=== PATIENT | male | born 1935 | race Caucasian/White ===

== ENCOUNTER → 2023-09-22 12:51 | Outpatient (REF) | payer OTHER, SELFPAY | LOC: RCS 12:51 | PROVIDERS: ATTENDING PHYSICIAN Internal Medicine Cardiovascular Disease; FAMILY PHYSICIAN Internal Medicine | DX: Z95.0 Presence of cardiac pacemaker (principal) | CPT/HCPCS: 93306 ==

== ENCOUNTER 2023-11-12 13:53 | Emergency (ER) | payer OTHER, SELFPAY ==
[2023-11-12 14:03] VITALS: BP 144/79
[2023-11-12 14:30] LABS: % Basophils 0.4 % (0-2); % Eosinophils 1.9 % (0-6); % Immature Granulocytes 0.2 % (0-0.5); % Lymphocytes 16.7 % (20.5-51.1); % Neutrophils 72.8 % (42.2-75.2); Absolute Eosinophils 0.2 10^3/uL (0-0.7); Absolute Lymphocytes 1.4 10^3/uL (1.2-3.4); Absolute Monocytes 0.7 10^3/uL (0.1-0.6); Absolute Neutrophils 6.2 10^3/uL (1.4-6.5); Hematocrit 35.1 % (39.0-52.0); Hemoglobin 11.2 g/dL (13.0-18.0); Mean Corp Hgb Conc. 31.9 g/dL (33.0-37.0); Mean Corpuscular Hgb 28.3 pg (27.0-31.0); Mean Corpuscular Volume 88.6 fL (80.0-94.0); Mean Platelet Volume 10.5 fL (7.4-10.4); Nucleated Red Blood Cells % 0 % (-); Platelet Count 248 10^3/uL (130-400); Red Blood Cell Count 3.96 10^6/uL (4.70-6.10); Red Cell Dist. Width 13.7 % (11.5-14.5); White Blood Cell Count 8.5 10^3/uL (4.8-10.8)
[2023-11-12 14:33] LABS: Urine Albumin 1+ (Neg - Trace); Urine Bilirubin Negative (Negative); Urine Glucose Negative (Negative); Urine Ketone Negative (Negative); Urine Leukocyte 2+ (Negative); Urine Nitrite Negative (Negative); Urine Occult Blood 4+ (Negative); Urine Urobilinogen Negative (Neg - 1+)
[2023-11-12 14:35] LABS: Urine Character Very Cloudy (Clear); Urine Color Pink
[2023-11-12 14:43] LABS: Urine Red Blood Cell >100 /HPF (0-2)
[2023-11-12 14:46] LABS: ALT (SGPT) 21 U/L (0-50); AST (SGOT) 26 U/L (17-59); Albumin 4.3 g/dl (3.5-5.0); Alkaline Phosphatase 74 U/L (38-126); Blood Urea Nitrogen 23 mg/dl (9-20); Calcium 11.4 mg/dl (8.4-10.2); Carbon Dioxide 28 mmol/L (22-30); Chloride 98 mmol/L (98-107); Glucose 103 mg/dl (70-99); Potassium 4.1 mmol/L (3.5-5.1); Sodium 138 mmol/L (135-145); Total Bilirubin 0.8 mg/dl (0.2-1.3); Total Protein 7.2 g/dl (6.3-8.2); eGFR 48.95
[2023-11-12 16:00] VITALS: BP 172/145
--- NOTE | 2023-11-12 16:07 | ED.GENMED ---
Addendum entered and electronically signed by Allie Shi PA-C 11/14/23 07:25:
prelim urine culture gram neg bacilli, only 25k colonoies
on augmentin
sensitivities pending
Original Note:
History of Present Illness
General
Chief Complaint: Urinary Symptoms
Source: patient and family
Time Seen by Provider: 11/12/23 15:53
History of Present Illness
History of Present Illness:
88yoM with a history of frequent UTIs, BPH, kidney stones, hypertension, hyperlipidemia, and type 2 diabetes presenting with his daughter for evaluation of hematuria. Patient reports urinary frequency and gross hematuria that began yesterday. He
reports noticing small clots in his urine stream. He denies any urinary retention, abdominal pain, flank pain, vomiting. No fevers or chills. Patient has a history of frequent UTIs and takes Macrobid and methenamine daily. He also takes Augmentin
PRN and he took a dose of this today.
Past History
Past History
ED Past Medical History: HTN, Hypercholesterolemia, NIDDM and Other (Kidney stones, UTI, Escherichia coli sepsis June 2018, BPH)
ED Past Surgical History: Urological (Cystoscopy with left ureteropelvic stone manipulation and double-J stent placement 07/17/2018)
Social History
Tobacco: Former smoker
Alcohol: None
Drug: None
Personal:
Living: with family
Employment: Retired
Family History
Family History: Other (Noncontributory)
Phy Exam
General Physical Exam
General Presentation: well appearing and no apparent distress
General age: appears stated age
General Skin: warm and dry
General Habitus: normal
General Mental: alert
ENT Exam
ENT Exam: normocephalic
Pulmonary Exam
Pulmonary Exam: no respiratory distress
Gastrointestinal Exam
Gastrointestinal Exam: non tender, soft, non distended and no cva tenderness
Genitourinary Exam Male
Exam Male: other (Urine is fruit punch colored with small clots)
Skin Exam
Skin Exam: normal color and warm/dry
Psychiatric Exam
Psychiatric Exam: normal mood/affect
Course
Orders/Labs/Results
Orders:
Orders
11/12/23 14:24
Complete Blood Count/With Diff Urgent
Comprehensive Metabolic Panel Urgent
Urinalysis Reflex To Culture Urgent
Date Specimen was Collected: 11/12/23
Time Specimen was Collected: 14:08
Urine Microscopic Reflex Cult Urgent
Urine Culture Urgent
MORALES Source: U
Specimen Description:
Date Specimen was Collected: 11/12/23
Time Specimen was Collected: 14:08
11/12/23 16:06
CT Abd/pel Without Iv Or Oral Urgent
Comment:
Reason For Exam: Hematuria
Bladder Scan- Treatment ONCE
11/12/23 18:16
Amoxicillin 875 mg/Clav 125 mg [Augmentin 875 mg/125 mg] 2 tablet PO NOW STA
Abnormal Lab Results
11/12/23
14:24
RBC 3.96 L 10^6/uL
(4.70-6.10)
Hgb 11.2 L g/dL
(13.0-18.0)
Hct 35.1 L %
(39.0-52.0)
MCHC 31.9 L g/dL
(33.0-37.0)
MPV 10.5 H fL
(7.4-10.4)
Absolute Monos (auto) 0.7 H 10^3/uL
(0.1-0.6)
Lymphocytes % 16.7 L %
(20.5-51.1)
BUN 23 H mg/dl
(9-20)
Creatinine 1.4 H mg/dL
(0.7-1.3)
Glucose 103 H mg/dl
(70-99)
Calcium 11.4 H mg/dl
(8.4-10.2)
Ur Occult Blood Reflex 4+ A
(Negative)
Leukocyte Esterase Rfl 2+ A
(Negative)
Urine RBC >100 A /HPF
(0-2)
Urine Albumin (Reflex) 1+ A
(Neg - Trace)
11/12/23 14:24
11/12/23 14:24
Vital Signs
Initial and Last Documented VS:
Initial Vital Signs
Temp Pulse Resp BP Pulse Ox
97.5 F 68 18 144/79 98
11/12/23 14:03 11/12/23 14:03 11/12/23 14:03 11/12/23 14:03 11/12/23 14:03
Last Documented Vital Signs
Temp Pulse Resp BP Pulse Ox
97.5 F 68 18 150/102 97
11/12/23 14:03 11/12/23 14:03 11/12/23 14:03 11/12/23 18:00 11/12/23 18:15
MDM/Problems Addressed
Differential Diagnosis Includes:
88yoM here with urinary frequency and gross hematuria x 1 day. No fevers, vomiting, flank pain. Take a baby aspirin daily. Hx of frequent UTIs and BPH. He is hypertensive with otherwise normal vitals. He is well appearing in no distress. No
abdominal or CVA tenderness on exam. Differential diagnosis includes but is not limited to: UTI, kidney stone, malignancy
Initial ED plan: Labs obtained in triage. Creatinine 1.4 which is near baseline. Hemoglobin is stable. UA with 2+ leukocytes and 4+ blood. Will check bladder scan and CT abdomen.
*Critical Care Note
Total Time (30-74mins, 75-104mins- exclusive of procedures): Not Applicable
Update Note
Update Note:
Bladder scan normal. CT shows 6.8mm stone in the L UPJ with mild hydronephrosis. There is also bladder wall thickening suggestive of cystitis and a severely enlarged prostate. Case was discussed with patient's urologist, Dr. Cristina. Urology
recommending discharge with PO abx with plan for close outpatient f/u this week. No indication for hospitalization as patient is afebrile with a normal white count but may admit if patient does not feel comfortable with discharge. Discussed
recommendations with patient and daughter. Both feel comfortable with discharge. Prescription provided for Augmentin based on prior urine culture susceptibilities. Advised close outpatient f/u with urology. Strict ED return precautions discussed
including severe pain, fevers, urinary retention. He was discharged in stable condition.
ED Attending Note
-
Portions of this chart may have been created with voice recognition software.� Occasional wrong word or��sound alike� substitutions may have occurred due to the inherent limitations of voice recognition software.
Discharge Plan
Departure
Patient Disposition: Home (Routine Discharge)
Date of Disposition: 11/12/23
Time of Disposition: 18:12
Patient with high blood pressure during this ER visit?: Yes
Discharge Problem:
Calculus of left ureter, Urinary tract infection, Gross hematuria
Instructions: Kidney Stone, Adult ED, Urinary Tract Infection, Adult ED
Prescriptions:
New
amoxicillin-pot clavulanate 875-125 mg tablet
1 tab PO BID Qty: 13 0RF
No Action
aspirin 81 MG tablet,delayed release (DR/EC)
81 mg PO DAILY
cholecalciferol (vitamin D3) [Vitamin D3] 1,000 UNIT capsule
25 mcg PO DAILY
rosuvastatin 20 MG tablet
20 mg PO QPM
furosemide 20 MG tablet
40 mg PO DAILY
dutasteride 0.5 MG capsule
0.5 mg PO DAILY
Irbesartan 300 MG
300 mg PO DAILY
tamsulosin 0.4 MG capsule
0.4 mg PO DAILY 30 Days Qty: 30 0RF
methenamine hippurate 1 GRAM tablet
1 g PO BID
polyethylene glycol 3350 17 GRAMS powder in packet
17 grams PO PRN PRN (Reason: Constiaption)
acetaminophen 325 mg Tablet
650 mg PO Q4HPRN PRN (Reason: Mild Pain / Temp > 101) Qty: 0 0RF
nitrofurantoin 100 mg Capsule
100 mg PO DAILY
cyanocobalamin (vitamin B-12) 1,000 MCG tablet
1,000 mcg PO DAILY
doxycycline hyclate 100 mg Capsule
100 mg PO Q12 3 Days Qty: 6 0RF
cefdinir 300 mg capsule
300 mg PO Q12H Qty: 6 0RF
Referrals:
Miguel Baker MD [Family Provider] -
Activity Restrictions/Additional Instructions:
Take antibiotics as prescribed. Increase your fluid intake.
Please call Dr. Cristina's office tomorrow to schedule a follow-up this week.
Return to the ER with any worsening symptoms, fevers, pain, or urinary retention.
Interventions
Interventions:
*Risk Screen - Suicide Last Done: 11/12/23 14:03
*General Assessment Last Done: 11/12/23 14:03
*Neglect/Abuse Screening Last Done: 11/12/23 18:32
ED- Fall Risk Assessment Last Done: 11/12/23 16:26
*ED COVID-19 Vaccine History Last Done: 11/12/23 14:03
*Nursing Disposition Last Done: 11/12/23 18:32
ED-Male Genitourinary Assessment Last Done: 11/12/23 15:54
Discharge Date and Time
Discharge Date/Time: 11/12/23 18:33
Print Language: KYRGYZ
[2023-11-12 17:08] VITALS: BP 154/94
[2023-11-12 18:00] VITALS: BP 150/102
[2023-11-12] MEDS: AUGMENTIN 875 MG/125 MG 2 TABLET PO (18:27)
== END 2023-11-12 18:33 | disposition home or self-care (01) ==
LOC: EMR 13:53
PROVIDERS: Emergency Medicine; EMERGENCY PHYSICIAN Emergency Medicine; FAMILY PHYSICIAN Internal Medicine
DX: N20.1 Calculus of ureter (principal); N39.0 Urinary tract infection, site not specified; R31.0 Gross hematuria; E11.9 Type 2 diabetes mellitus without complications; E78.00 Pure hypercholesterolemia, unspecified; I11.9 Hypertensive heart disease without heart failure; N40.1 Benign prostatic hyperplasia with lower urinary tract symptoms; Z87.440 Personal history of urinary (tract) infections; Z87.442 Personal history of urinary calculi; Z87.891 Personal history of nicotine dependence
CPT/HCPCS: 99284; 74176; 80053; 81003; 81015; 85025; 87077; 87086; 87186

== ENCOUNTER 2023-11-21 06:31 | Day surgery (SDC) | payer OTHER, SELFPAY ==
--- NOTE | 2023-11-16 12:09 | PTCARENOTE ---
ESBL in urine 11/12/23; Ivania at 's office aware.
[2023-11-21] VITALS (10 sets, daily range): BP systolic 127–166; BP diastolic 80–93; BMI 37.9
[2023-11-21] MEDS: NORMOSOL-R/PLASMALYTE-A 1000 IV (10:19)
[2023-11-21] MEDS: Pyridium 200 MG PO (13:35)
[2023-11-21] MEDS: FLOMAX 0.4 MG PO (13:35)
== END 2023-11-21 15:20 | disposition home or self-care (01) ==
LOC: SDS 06:31
PROVIDERS: ATTENDING PHYSICIAN Specialist
PROC: 0TC78ZZ Extirpation of Matter from Left Ureter, Via Natural or Artificial Opening Endoscopic (ICD-10-PCS; 2023-11-21)
PROC: 0T778DZ Dilation of Left Ureter with Intraluminal Device, Via Natural or Artificial Opening Endoscopic (ICD-10-PCS; 2023-11-21)
DX: N20.2 Calculus of kidney with calculus of ureter (principal); N13.5 Crossing vessel and stricture of ureter without hydronephrosis; Z87.440 Personal history of urinary (tract) infections
CPT/HCPCS: 52356; 74420; 76000; 82365; 87086; 93005; A4300; C1894; C2617

== ENCOUNTER 2024-08-23 13:50 | Emergency (ER) | payer OTHER, SELFPAY ==
[2024-08-23] VITALS (8 sets, daily range): BP systolic 136–175; BP diastolic 77–103; BMI 35.4
[2024-08-23 14:18] LABS: % Basophils 0.6 % (0-2); % Eosinophils 1.9 % (0-6); % Immature Granulocytes 0.2 % (0-0.5); % Lymphocytes 17.3 % (20.5-51.1); % Monocytes 8.1 % (1.7-9.3); % Neutrophils 71.9 % (42.2-75.2); Absolute Eosinophils 0.1 10^3/uL (0-0.7); Absolute Lymphocytes 0.8 10^3/uL (1.2-3.4); Absolute Monocytes 0.4 10^3/uL (0.1-0.6); Absolute Neutrophils 3.5 10^3/uL (1.4-6.5); Hematocrit 36.5 % (39.0-52.0); Hemoglobin 11.4 g/dL (13.0-18.0); Mean Corp Hgb Conc. 31.2 g/dL (33.0-37.0); Mean Corpuscular Hgb 28.4 pg (27.0-31.0); Mean Platelet Volume 11.5 fL (7.4-10.4); Nucleated Red Blood Cells % 0 % (-); Platelet Count 188 10^3/uL (130-400); Red Blood Cell Count 4.01 10^6/uL (4.70-6.10); Red Cell Dist. Width 14.6 % (11.5-14.5); White Blood Cell Count 4.8 10^3/uL (4.8-10.8)
[2024-08-23 14:32] LABS: ALT (SGPT) 20 U/L (0-50); AST (SGOT) 23 U/L (17-59); Albumin 4.2 g/dl (3.5-5.0); Alkaline Phosphatase 59 U/L (38-126); Blood Urea Nitrogen 25 mg/dl (9-20); Calcium 11.5 mg/dl (8.4-10.2); Carbon Dioxide 27 mmol/L (22-30); Chloride 107 mmol/L (98-107); Glucose 144 mg/dl (70-99); Potassium 4.4 mmol/L (3.5-5.1); Sodium 141 mmol/L (135-145); Total Bilirubin 0.8 mg/dl (0.2-1.3); Total Protein 7.2 g/dl (6.3-8.2); eGFR 41.44
[2024-08-23 14:45] LABS: NT-proBNP 442 pg/ml; Troponin I < 0.012 ng/ml
--- NOTE | 2024-08-23 18:00 | ED.GENMED ---
History of Present Illness
General
Chief Complaint: Breathing Problem
Source: patient and family (Daughter at bedside)
Exam Limitations: none
Time Seen by Provider: 08/23/24 17:57
Nursing documentation reviewed up to this point in time: agreed with
History of Present Illness
History of Present Illness:
Patient is an 89-year-old male history hypertension, hyperlipidemia, diabetes who presents to the emergency department for shortness of breath X 4 days. Patient's daughter states that he has been breathing more heavily and seems to be more winded
than usual. Patient is unable to correlate the symptoms clearly to be exertional or positional in nature. No pleuritic chest pain. Patient denies any associated fever or productive cough. His daughter does note that he seems to have an increase
in his mucus production.
He denies any severe back pain, nausea/vomiting, or lightheadedness.
Patient was seen by his primary care provider on Monday where chest x-ray was ordered although they have not received the results yet. He also was started on antibiotics for suspected cellulitis of his left lower leg given swelling, redness, and
warmth.
Of note�patient recently returned from [place] last .
Past History
Past History
ED Past Medical History: HTN, Hypercholesterolemia, NIDDM and Other (Kidney stones, UTI, Escherichia coli sepsis June 2018, BPH)
ED Past Surgical History: Urological (Cystoscopy with left ureteropelvic stone manipulation and double-J stent placement 07/17/2018)
Social History
Tobacco: Former smoker
Alcohol: None
Drug: None
Personal:
Living: with family
Employment: Retired
Family History
Family History: Other (Noncontributory)
Review of Systems
Review of Systems
Allergies reviewed?: Yes
All Other Systems: ROS reviewed and negative except as documented in HPI and ROS
Phy Exam
Physical Exam
Physical Exam:
- Vitals: Hypertensive, otherwise vital signs stable. Afebrile
- General: Well appearing in no distress
- HEENT: Moist oral mucosa
- Cardiovascular: No murmurs, normal heart rate, regular rhythm, No chest wall tenderness
- Pulmonary: No respiratory distress. Lungs clear bilaterally.
- Abdomen: Soft with no peritoneal signs, no tenderness
- Neurologic: Excellent strength all extremities, no coordination deficits
- Psychiatric: Appropriate mental status, normal insight and judgement
- Extremities: Edema in bilateral lower extremities although appears more significant in left lower extremity. Erythema and warmth of distal left lower extremity. 2+ palpable DP pulses bilaterally. Negative Homans' sign bilaterally.
- Skin: Erythema of left lower extremity as noted above
Scores
Heart Failure Risk
Heart Failure Risk Score: Not Applicable
Course
Orders/Labs/Results
Orders:
Orders
08/23/24 13:51
Electrocardiogram (*1) Urgent
Reason for Study: Shortness of Breath
EKG- Treatment ONCE
08/23/24 14:00
CR Chest - 2 Views Urgent
Comment:
Reason For Exam: shortness of breath
08/23/24 14:09
Complete Blood Count/With Diff Urgent
Comprehensive Metabolic Panel Urgent
NT-proBNP Urgent
Troponin I Urgent
Blood Culture Urgent
MORALES Source: Blood/Venous
Specimen Description:
Date Specimen was Collected: 08/23/24
Time Specimen was Collected: 14:01
08/23/24 18:17
CT Chest PE Study Urgent
Comment:
Reason For Exam: LLE swelling, SOB
0.9% Sodium Chloride 500 ml [Nss] 500 ml IV BOLUS
Venous Doppler Lwr Ext Left [US Periph Venous LOWER Ext LT] Urgent
Comment:
Reason For Exam: LLE swelling; recent travel from [place]
08/23/24 18:18
pacemaker [Interrogate Pacemaker- Treatment] ONCE
Abnormal Lab Results
08/23/24
14:09
RBC 4.01 L 10^6/uL
(4.70-6.10)
Hgb 11.4 L g/dL
(13.0-18.0)
Hct 36.5 L %
(39.0-52.0)
MCHC 31.2 L g/dL
(33.0-37.0)
RDW 14.6 H %
(11.5-14.5)
MPV 11.5 H fL
(7.4-10.4)
Absolute Lymphs (auto) 0.8 L 10^3/uL
(1.2-3.4)
Lymphocytes % 17.3 L %
(20.5-51.1)
BUN 25 H mg/dl
(9-20)
Creatinine 1.6 H mg/dL
(0.7-1.3)
Glucose 144 H mg/dl
(70-99)
Calcium 11.5 H mg/dl
(8.4-10.2)
08/23/24 14:09
08/23/24 14:09
Vital Signs
Initial and Last Documented VS:
Initial Vital Signs
Temp Pulse Resp BP Pulse Ox
97.5 F 78 20 136/82 98
08/23/24 13:56 08/23/24 13:56 08/23/24 13:56 08/23/24 13:56 08/23/24 13:56
Last Documented Vital Signs
Temp Pulse Resp BP Pulse Ox
98.4 F 60 15 175/87 98
08/23/24 15:28 08/23/24 21:15 08/23/24 21:15 08/23/24 21:00 08/23/24 21:15
MDM/Problems Addressed
Differential Diagnosis Includes:
Not limited to: Bronchitis, pneumonia, pleural effusion, congestive heart failure, ACS, PE, etc.
MDM/Problems Addressed:
89-year-old male presenting with mild dyspnea over the past few days as well as some swelling in his lower extremities. He recently started doxycycline for suspected cellulitis of left lower leg. No associated fever, chest pain, productive cough.
He did recently return from [place] 1 week ago. Patient mildly hypertensive on arrival with otherwise stable vital signs. Physical exam as above. Patient overall well-appearing, in no apparent respiratory distress. Lungs clear bilaterally. He
does have swelling of his lower extremities, left > right with area of erythema around left ankle. Palpable distal pulses bilaterally. Prior to my evaluation�basic labs were sent off which show mild renal insufficiency and hypercalcemia�which
appears similar to baseline. Troponin was undetectable and BNP of 442. Chest x-ray reveals a possible mild right lower lobe pneumonia. Patient has no other infectious symptoms of pneumonia and given recent travel from [place] with lower extremity
swelling will check ultrasound and CTA chest to rule out DVT/PE. Will interrogate pacemaker.
Update: Ultrasound that evidence of DVT. CT chest shows no evidence of pulmonary embolism or pneumonia. A few incidental findings noted which were discussed with patient and they were provided of the report. Pacemaker report reveals 1 episode of
nonsustained V. tach potentially occurring yesterday lasting less than 2 seconds. Feel this is relatively insignificant and was discussed with cardiology who agrees and feels stable for outpatient management. Patient remains well and comfortable
appearing, with normal vital signs and in no respiratory distress. Ultimately�workup in emergency department negative. Will advise continued doxycycline for possible cellulitis of left lower extremity as prescribed by primary care and very strict
return precautions. Patient and patient's family comfortable with plan. All questions answered.
Chronic conditions affecting care:
Hypertension, pacemaker
Acute Exacerbation and/or Progression of Chronic Illness:
Acutely hypertensive
*Radiology
Radiology exam reviewed: radiology read reviewed
*Pulse Oximetry
SaO2: 97
Oxygen Mode of Delivery: Room air
Patient hypoxic: no
*EKG
Interpreted by ED Provider?: Yes
EKG Intrepretation Date: 08/23/24
Interpretation: abnormal
Comparison EKG: changes noted
Heart Rate: 81
Rate: normal
Rhythm: ventricular paced
Interval: long QT
*Director Of Category Management Interpretation
Rate: normal
Interpretation: abnormal
Heart Rate: 74
Rhythm: ventricular paced
*Critical Care Note
Total Time (30-74mins, 75-104mins- exclusive of procedures): Not Applicable
Data Reviewed
Review of Other/Old Records Reveals: Testing (Cardiac echo from 09/22/2023-EF 55 to 60%)
Patient Management
Discussion with other providers: Shirt Operator (Pacemaker report discussed with cardiology)
ED Attending Note
-
Portions of this chart may have been created with voice recognition software.� Occasional wrong word or��sound alike� substitutions may have occurred due to the inherent limitations of voice recognition software.
Discharge Plan
Departure
Patient Disposition: Home (Routine Discharge)
Date of Disposition: 08/23/24
Time of Disposition: 21:26
Patient with high blood pressure during this ER visit?: Yes
Condition: Good
Discharge Problem:
Dyspnea, Cellulitis of left leg
Instructions: Shortness of Breath (Dyspnea) (DC), Chest Pain DCA Follow Up, BLOOD PRESSURE
Prescriptions:
No Action
aspirin 81 MG tablet,delayed release (DR/EC)
81 mg PO DAILY
cholecalciferol (vitamin D3) [Vitamin D3] 1,000 UNIT capsule
25 mcg PO DAILY
rosuvastatin 20 MG tablet
20 mg PO QPM
furosemide 20 MG tablet
40 mg PO DAILY
dutasteride 0.5 MG capsule
0.5 mg PO DAILY
Irbesartan 300 MG
300 mg PO QPM
tamsulosin 0.4 MG capsule
0.4 mg PO DAILY 30 Days Qty: 30 0RF
methenamine hippurate 1 GRAM tablet
1 g PO BID
polyethylene glycol 3350 17 GRAMS powder in packet
17 grams PO PRN PRN (Reason: Constiaption)
acetaminophen 325 mg Tablet
650 mg PO Q4HPRN PRN (Reason: Mild Pain / Temp > 101) Qty: 0 0RF
cyanocobalamin (vitamin B-12) 1,000 MCG tablet
1,000 mcg PO DAILY
nitrofurantoin
100 mg PO DAILY
Align (B.infantis) 4 mg Capsule
4 mg PO DAILY
Referrals:
Miguel Baker MD [Family Provider, Internal Medicine]
Karely Erazo MD [Active, Cardiology] - Call in 1-3 days for appt
Activity Restrictions/Additional Instructions:
RETURN TO THE EMERGENCY DEPARTMENT ANY CHEST PAIN, SHORTNESS OF BREATH, FOR ACTIVE COUGH, HIGH FEVERS, WORSENING REDNESS OR SWELLING OF LEFT LOWER EXTREMITY, AND ANY EPISODES OF SYNCOPE/FAINTING, OR ANY OTHER CONCERNS
- As discussed�your workup in the emergency department revealed no evidence of pneumonia. Your kidney function was mildly elevated. Is important you stay well-hydrated at home and have this value repeated with your primary care.
- There is no evidence of a blood clot of your left lower leg today. Please continue to take the doxycycline as prescribed for suspected cellulitis and monitor this closely.
- Please follow closely with your annealer helper for further evaluation/management and to ensure your pacemaker is functioning correctly. Continue to take all your medications as prescribed
Monitor your symptoms closely and return to the emergency department with any acute worsening/new symptoms or any other concerns
Interventions
Interventions:
*Risk Screen - Suicide Last Done: 08/23/24 17:10
*General Assessment Last Done: 08/23/24 17:10
*Neglect/Abuse Screening Last Done: 08/23/24 17:10
*ED- Fall Risk Assessment Last Done: 08/23/24 17:10
*ED COVID-19 Vaccine History Last Done: 08/23/24 17:10
*Nursing Disposition Last Done: 08/23/24 22:17
ED- Cardiac Assessment Last Done: 08/23/24 17:16
ED- Pulmonary Assessment Last Done: 08/23/24 17:16
Discharge Date and Time
Discharge Date/Time: 08/23/24 21:45
Print Language: PASHTO
[2024-08-23] MEDS: NSS 500 IV (19:15)
== END 2024-08-23 21:45 | disposition home or self-care (01) ==
LOC: EMR 13:50
PROVIDERS: Emergency Medicine; EMERGENCY PHYSICIAN Student in an Organized Health Care Education/Training Program; FAMILY PHYSICIAN Internal Medicine
DX: L03.116 Cellulitis of left lower limb (principal); R06.00 Dyspnea, unspecified; E11.9 Type 2 diabetes mellitus without complications; E78.00 Pure hypercholesterolemia, unspecified; I10 Essential (primary) hypertension; I47.20 Ventricular tachycardia, unspecified; Z87.891 Personal history of nicotine dependence
CPT/HCPCS: 96360; 99285; 71046; 71275; 80053; 83880; 84484; 85025; 87040; 93005; 93971; Q9967

== ENCOUNTER → 2024-12-16 11:04 | Outpatient (REF) | payer OTHER, SELFPAY | LOC: HWRCS 11:04 | PROVIDERS: ATTENDING PHYSICIAN Nurse Practitioner; FAMILY PHYSICIAN Internal Medicine | DX: I48.92 Unspecified atrial flutter (principal) | CPT/HCPCS: 93306 ==

== ENCOUNTER 2025-02-20 15:32 | Inpatient (IN) | payer OTHER, SELFPAY ==
[2025-02-20] VITALS (7 sets, daily range): BP systolic 114–157; BP diastolic 66–81; BMI 39.8; BMI 38.6
--- NOTE | 2025-02-20 11:35 | ED.GENMED ---
History of Present Illness
<Hamida Zee PA-C - Last Filed: 02/20/25 22:35>
General
Chief Complaint: Male Genito-Urinary Symptoms
Source: patient and family
Exam Limitations: none
Time Seen by Provider: 02/20/25 11:06
Nursing documentation reviewed up to this point in time: agreed with
History of Present Illness
History of Present Illness:
Patient is an 89-year-old male with history atrial fibrillation on Xarelto, hypertension, hyperlipidemia, frequent UTIs who presents to the emergency department with daughter for evaluation of weakness and gross hematuria. Patient's daughter states
that last night at the family dinner on her father seemed weaker than his baseline. This morning, his noticed that his urine was red/dark brown. Patient also apparently had 'chills' this morning and was up throughout the night
urinating.
Patient had no known fever at home. He denies any abdominal pain, back pain, or flank pain. He denies any chest pain or shortness of breath. No productive cough or bodyaches.
Patient does have a history of frequent UTIs and kidney stones�follows with Dr. Cristina outpatient.
Past History
<Hamida Zee PA-C - Last Filed: 02/20/25 22:35>
Past History
ED Past Medical History: HTN, Hypercholesterolemia, NIDDM and Other (Kidney stones, UTI, Escherichia coli sepsis June 2018, BPH)
ED Past Surgical History: Urological (Cystoscopy with left ureteropelvic stone manipulation and double-J stent placement 07/17/2018)
Social History
Tobacco: Former smoker
Alcohol: None
Drug: None
Personal:
Living: with family
Employment: Retired
Family History
Family History: Other (Noncontributory)
Review of Systems
<Hamida Zee PA-C - Last Filed: 02/20/25 22:35>
Review of Systems
Allergies reviewed?: Yes
All Other Systems: ROS reviewed and negative except as documented in HPI and ROS
Phy Exam
<Hamida Zee PA-C - Last Filed: 02/20/25 22:35>
Physical Exam
Physical Exam:
Vitals: Hypertensive, otherwise vital stable. Afebrile
General: Patient is in no distress
Skin: Warm and dry, no rashes or lesions
Head: Normocephalic, atraumatic
Eyes: Sclera nonicteric.
Throat: Protecting airway
Neck: Normal ROM, no cervical spine tenderness, no meningismus
Cardiac: Regular rate and rhythm, no murmurs.
Pulm: Normal respiratory effort. Lungs clear. Infrequent cough
Abdomen: Abdomen soft without any focal tenderness.
Extremities: No evidence of cyanosis or edema
Neuro: AAOx3. Grossly intact
Psychiatric: Normal affect.
Course
<Hamida Zee PA-C - Last Filed: 02/20/25 22:35>
Orders/Labs/Results
Orders:
Orders
02/20/25 Breakfast
Cholesterol Lowering
At Your Request: Limited, Farm Operations Manager Required
Cholesterol Lowering: Sodium, 2 Gram
02/20/25 11:19
Abdomen/Pelvis wo Contrast CT [CT Abd/pelvis Wo Iv Cont] Urgent
Comment: hx kidney stones
Reason For Exam: gross hematuria
02/20/25 11:29
pacemaker [Interrogate Pacemaker- Treatment] ONCE
02/20/25 11:40
COVID-19 Antigen Urgent
Source: Nasal Swab
Complete Blood Count/With Diff Urgent
Comprehensive Metabolic Panel Urgent
Blood Culture Q30M
MORALES Source: Blood/Venous
Specimen Description:
Blood Culture Q30M
MORALES Source: Blood/Venous
Specimen Description:
Influenza A+B Rapid Molecular Urgent
MORALES Source: Nasal Swab
Specimen Description:
02/20/25 12:15
Urinalysis Reflex To Culture Urgent
Date Specimen was Collected: 02/20/25
Time Specimen was Collected: 11:29
Urine Microscopic Reflex Cult Urgent
Urine Culture Urgent
MORALES Source: U
Specimen Description:
Date Specimen was Collected: 02/20/25
Time Specimen was Collected: 11:29
02/20/25 14:18
CefTRIAXone [Rocephin] 1,000 mg IV NOW STA
02/20/25 14:31
Sterile Water [Sterile Water For Injection] 10 ml .ROUTE .K-MED ONE
02/20/25 14:50
CR Chest - 2 Views Stat
Comment:
Reason For Exam: cough
02/20/25 14:58
Admit/Transfer Patient As Directed
Co-Sign Provider:
Level of Care: Inpatient admission
Assign to:: Telemetry
Physician / Group: eliana
Diagnosis: pyelonephritis
Reason for Telemetry: Arrhythmia
Date to Stop Telemetry: 02/23/25
Time to Stop Telemetry: 11:00
Reason for Hospitalization: pyelonephritis
Expected length of stay greater than two midnights?: Yes
ELOS- Estimated Length of Stay in days: 3
I certify the patient meets the requirements for IP care: Yes
02/20/25 14:59
PRN Pain Medication Management As Directed
May give lesser potent ordered pain med per pt: Yes
preference::
Protocol:: Medication orders for pain may be administered in a
manner that supports deferring to patient preference
when the pt is:
- Requesting an ordered lesser potent pain medication.
Least to most potent pain medications are defined
as: acetaminophen < NSAID < tramadol < opioids
(morphine, oxycodone, hydromorphone).
- Requesting a lesser dose of the same medication IF
ORDERED.
- Requesting a less intrusive route of administration
if both routes are prescribed by the provider (PO <
IV).
02/20/25 15:00
Code Status As Directed
Resuscitation Status: Full Code
02/20/25 17:36
Acetaminophen [Tylenol] 650 mg PO Q4HPRN PRN
Bisacodyl [Dulcolax] 10 mg RECTAL [id number] PRN
Docusate W/Senna [Senokot-S] 1 tablet PO BIDPRN PRN
Guaifenesin [Mucinex] 600 mg PO Q12 PRN
Polyethylene Glycol Powder [Miralax] 17 grams PO DAILYPRN PRN
02/20/25 17:36
Activity As Directed
Activity Level: As Tolerated
Bladder Scan As Directed
Follow Bladder Retention/Intermittent Cath Algorithm?: Yes
PRN if no void in __ hours: 6
Frequency: Per Retention Algorithm
If Bladder Scan Result >: 400
then:: Straight cath
Intake/ Output As Directed
Frequency: Per unit guidelines
Straight Cath As Directed
Frequency: Per Retention Algorithm
Additional Instructions: straight cath as needed per acute urinary retention algorithm for 24 hrs
Additional Instructions: for bladder scan greater than 400 mL
Vital Signs As Directed
Frequency: Per unit guidelines
Weight As Directed
Frequency: Daily
Ot Eval And Treat Routine
Pt Eval And Treat Routine
Activity Level: As Tolerated
02/20/25 20:00
Piperacillin/Tazo 3.375 Gram [Zosyn] 3.375 gram in 50 ml IV Q6H
02/21/25 06:00
Basic Metabolic Panel IN AM
Complete Blood Count/No Diff IN AM
02/21/25 08:00
Finasteride [Proscar] 5 mg PO DAILY
Furosemide [Lasix] 40 mg PO DAILY
Irbesartan [Avapro] 300 mg PO DAILY
Rosuvastatin Calcium [Crestor] 20 mg PO DAILY
Tamsulosin [Flomax] 0.4 mg PO DAILY
02/22/25 06:00
Basic Metabolic Panel IN AM
Complete Blood Count/No Diff IN AM
02/23/25 06:00
Basic Metabolic Panel IN AM
Complete Blood Count/No Diff IN AM
02/23/25 11:00
DC Protocol for Telemetry ONCE
Abnormal Lab Results
02/20/25 02/20/25
11:40 12:15
RBC 3.85 L 10^6/uL
(4.70-6.10)
Hgb 10.4 L g/dL
(13.0-18.0)
Hct 33.0 L %
(39.0-52.0)
MCHC 31.5 L g/dL
(33.0-37.0)
RDW 15.5 H %
(11.5-14.5)
MPV 11.1 H fL
(7.4-10.4)
Absolute Neuts (auto) 9.3 H 10^3/uL
(1.4-6.5)
Absolute Lymphs (auto) 0.5 L 10^3/uL
(1.2-3.4)
Absolute Monos (auto) 1.0 H 10^3/uL
(0.1-0.6)
Neutrophils % 85.8 H %
(42.2-75.2)
Lymphocytes % 4.5 L %
(20.5-51.1)
Sodium 133 L mmol/L
(135-145)
BUN 32 H mg/dl
(9-20)
Creatinine 1.5 H mg/dL
(0.7-1.3)
Glucose 132 H mg/dl
(70-99)
Calcium 11.4 H mg/dl
(8.4-10.2)
Ur Occult Blood Reflex 4+ A
(Negative)
Urine Nitrite (Reflex) Positive A
(Negative)
Leukocyte Esterase Rfl 3+ A
(Negative)
Urine RBC >100 A /HPF
(0-2)
Urine WBC (Reflex) 60-70 A /HPF
(0-5)
Urine Bacteria (Reflex) Many A
(Negative)
Urine Albumin (Reflex) 3+ A
(Neg - Trace)
02/20/25 11:40
02/20/25 11:40
Vital Signs
Initial and Last Documented VS:
Initial Vital Signs
Temp Pulse Resp BP Pulse Ox
98.6 F 70 20 130/66 96
02/20/25 10:20 02/20/25 10:20 02/20/25 10:20 02/20/25 10:20 02/20/25 10:20
Last Documented Vital Signs
Temp Pulse Resp BP Pulse Ox
100.6 F H 71 22 157/68 94
02/20/25 19:41 02/20/25 19:41 02/20/25 19:41 02/20/25 19:41 02/20/25 19:41
<Nikkie Sharp MD - Last Filed: 02/20/25 15:27>
Orders/Labs/Results
Orders:
Orders
02/20/25 Breakfast
Cholesterol Lowering
At Your Request: Limited, Farm Operations Manager Required
Cholesterol Lowering: Sodium, 2 Gram
02/20/25 11:19
Abdomen/Pelvis wo Contrast CT [CT Abd/pelvis Wo Iv Cont] Urgent
Comment: hx kidney stones
Reason For Exam: gross hematuria
02/20/25 11:29
pacemaker [Interrogate Pacemaker- Treatment] ONCE
02/20/25 11:40
COVID-19 Antigen Urgent
Source: Nasal Swab
Complete Blood Count/With Diff Urgent
Comprehensive Metabolic Panel Urgent
Blood Culture Q30M
MORALES Source: Blood/Venous
Specimen Description:
Blood Culture Q30M
MORALES Source: Blood/Venous
Specimen Description:
Influenza A+B Rapid Molecular Urgent
MORALES Source: Nasal Swab
Specimen Description:
02/20/25 12:15
Urinalysis Reflex To Culture Urgent
Date Specimen was Collected: 02/20/25
Time Specimen was Collected: 11:29
Urine Microscopic Reflex Cult Urgent
Urine Culture Urgent
MORALES Source: U
Specimen Description:
Date Specimen was Collected: 02/20/25
Time Specimen was Collected: 11:29
02/20/25 14:18
CefTRIAXone [Rocephin] 1,000 mg IV NOW STA
02/20/25 14:31
Sterile Water [Sterile Water For Injection] 10 ml .ROUTE .STK-MED ONE
02/20/25 14:50
CR Chest - 2 Views Stat
Comment:
Reason For Exam: cough
02/20/25 14:58
Admit/Transfer Patient As Directed
Co-Sign Provider:
Level of Care: Inpatient admission
Assign to:: Telemetry
Physician / Group: eliana
Diagnosis: pyelonephritis
Reason for Telemetry: Arrhythmia
Date to Stop Telemetry: 02/23/25
Time to Stop Telemetry: 11:00
Reason for Hospitalization: pyelonephritis
Expected length of stay greater than two midnights?: Yes
ELOS- Estimated Length of Stay in days: 3
I certify the patient meets the requirements for IP care: Yes
02/20/25 14:59
PRN Pain Medication Management As Directed
May give lesser potent ordered pain med per pt: Yes
preference::
Protocol:: Medication orders for pain may be administered in a
manner that supports deferring to patient preference
when the pt is:
- Requesting an ordered lesser potent pain medication.
Least to most potent pain medications are defined
as: acetaminophen < NSAID < tramadol < opioids
(morphine, oxycodone, hydromorphone).
- Requesting a lesser dose of the same medication IF
ORDERED.
- Requesting a less intrusive route of administration
if both routes are prescribed by the provider (PO <
IV).
02/20/25 15:00
Code Status As Directed
Resuscitation Status: Full Code
02/20/25 17:36
Acetaminophen [Tylenol] 650 mg PO Q4HPRN PRN
Bisacodyl [Dulcolax] 10 mg RECTAL [id number] PRN
Docusate W/Senna [Senokot-S] 1 tablet PO BIDPRN PRN
Guaifenesin [Mucinex] 600 mg PO Q12 PRN
Polyethylene Glycol Powder [Miralax] 17 grams PO DAILYPRN PRN
02/20/25 17:36
Activity As Directed
Activity Level: As Tolerated
Bladder Scan As Directed
Follow Bladder Retention/Intermittent Cath Algorithm?: Yes
PRN if no void in __ hours: 6
Frequency: Per Retention Algorithm
If Bladder Scan Result >: 400
then:: Straight cath
Intake/ Output As Directed
Frequency: Per unit guidelines
Straight Cath As Directed
Frequency: Per Retention Algorithm
Additional Instructions: straight cath as needed per acute urinary retention algorithm for 24 hrs
Additional Instructions: for bladder scan greater than 400 mL
Vital Signs As Directed
Frequency: Per unit guidelines
Weight As Directed
Frequency: Daily
Ot Eval And Treat Routine
Pt Eval And Treat Routine
Activity Level: As Tolerated
02/20/25 20:00
Piperacillin/Tazo 3.375 Gram [Zosyn] 3.375 gram in 50 ml IV Q6H
02/21/25 06:00
Basic Metabolic Panel IN AM
Complete Blood Count/No Diff IN AM
02/21/25 08:00
Finasteride [Proscar] 5 mg PO DAILY
Furosemide [Lasix] 40 mg PO DAILY
Irbesartan [Avapro] 300 mg PO DAILY
Rosuvastatin Calcium [Crestor] 20 mg PO DAILY
Tamsulosin [Flomax] 0.4 mg PO DAILY
02/22/25 06:00
Basic Metabolic Panel IN AM
Complete Blood Count/No Diff IN AM
02/23/25 06:00
Basic Metabolic Panel IN AM
Complete Blood Count/No Diff IN AM
02/23/25 11:00
DC Protocol for Telemetry ONCE
Abnormal Lab Results
02/20/25 02/20/25
11:40 12:15
RBC 3.85 L 10^6/uL
(4.70-6.10)
Hgb 10.4 L g/dL
(13.0-18.0)
Hct 33.0 L %
(39.0-52.0)
MCHC 31.5 L g/dL
(33.0-37.0)
RDW 15.5 H %
(11.5-14.5)
MPV 11.1 H fL
(7.4-10.4)
Absolute Neuts (auto) 9.3 H 10^3/uL
(1.4-6.5)
Absolute Lymphs (auto) 0.5 L 10^3/uL
(1.2-3.4)
Absolute Monos (auto) 1.0 H 10^3/uL
(0.1-0.6)
Neutrophils % 85.8 H %
(42.2-75.2)
Lymphocytes % 4.5 L %
(20.5-51.1)
Sodium 133 L mmol/L
(135-145)
BUN 32 H mg/dl
(9-20)
Creatinine 1.5 H mg/dL
(0.7-1.3)
Glucose 132 H mg/dl
(70-99)
Calcium 11.4 H mg/dl
(8.4-10.2)
Ur Occult Blood Reflex 4+ A
(Negative)
Urine Nitrite (Reflex) Positive A
(Negative)
Leukocyte Esterase Rfl 3+ A
(Negative)
Urine RBC >100 A /HPF
(0-2)
Urine WBC (Reflex) 60-70 A /HPF
(0-5)
Urine Bacteria (Reflex) Many A
(Negative)
Urine Albumin (Reflex) 3+ A
(Neg - Trace)
02/20/25 11:40
02/20/25 11:40
Vital Signs
Initial and Last Documented VS:
Initial Vital Signs
Temp Pulse Resp BP Pulse Ox
98.6 F 70 20 130/66 96
02/20/25 10:20 02/20/25 10:20 02/20/25 10:20 02/20/25 10:20 02/20/25 10:20
Last Documented Vital Signs
Temp Pulse Resp BP Pulse Ox
100.6 F H 71 22 157/68 94
02/20/25 19:41 02/20/25 19:41 02/20/25 19:41 02/20/25 19:41 02/20/25 19:41
<Hamida Zee PA-C - Last Filed: 02/20/25 22:35>
MDM/Problems Addressed
Differential Diagnosis Includes:
Not limited to: Cystitis, pyelonephritis, obstructing ureteral calculus, viral illness, cardiac arrhythmia, anemia, electrolyte abnormality, etc.
MDM/Problems Addressed:
89-year-old male with one day of generalized weakness and gross hematuria. History of frequent UTIs and kidney stones. No associated fever, abdominal pain/flank pain or vomiting.
Vitals and physical exam as above.
Labs significant for stable renal insufficiency. UA appears infected. CT scan without evidence of obstructing ureteral calculi however does note significant stranding around left kidney suspicious for superimposed infection/pyelonephritis.
Impression is generalized weakness secondary to left sided pyelonephritis. Feel admission warranted for IV antibiotics. Patient and patient�s daughter agree with plan. IV antibiotics ordered in ED and patient accepted to hospitalist service for
continued management.
Chronic conditions affecting care:
Atrial fibrillation on Xarelto, hypertension,
Acute Exacerbation and/or Progression of Chronic Illness:
Acutely hypertensive
<Hamida Zee PA-C - Last Filed: 02/20/25 22:35>
*Radiology
Radiology exam reviewed: radiology read reviewed
*Pulse Oximetry
SaO2: 97
Oxygen Mode of Delivery: Room air
Patient hypoxic: no
*Food Safety Scientist Interpretation
Rate: normal
Interpretation: normal
Heart Rate: 75
Rhythm: ventricular paced
*Critical Care Note
Total Time (30-74mins, 75-104mins- exclusive of procedures): Not Applicable
<Hamida Zee PA-C - Last Filed: 02/20/25 22:35>
Patient Management
Discussion with other providers: Hospitalist
ED Attending Note
<Hamida Zee PA-C - Last Filed: 02/20/25 22:35>
-
Portions of this chart may have been created with voice recognition software.� Occasional wrong word or��sound alike� substitutions may have occurred due to the inherent limitations of voice recognition software.
<Nikkie Sharp MD - Last Filed: 02/20/25 15:27>
ED Attending Note
Patient seen and examined by attending physician: Yes
I performed the substantive portion of visit, reviewed & personally made and approve the management plan that is documented in note by myself or BHUPINDER.: Yes
ED Attending Note:
Patient appears alert and nontoxic. Abdomen is soft throughout. Breathing comfortably
Discharge Plan
Departure
Patient Disposition: Admit
Date of Disposition: 02/20/25
Time of Disposition: 14:21
Presentation/result/management discussed w/ accepting MD/DO: Hospitalist
Discharge Problem:
Acute pyelonephritis, Weakness
Interventions
Interventions:
*General Assessment Last Done: 02/20/25 11:43
*Neglect/Abuse Screening Last Done: 02/20/25 10:47
*ED COVID-19 Vaccine History Last Done: 02/20/25 17:58
*ED Influenza Vaccine History Last Done: 02/20/25 10:20
[facility] Risk Assessment Tool Last Done: 02/20/25 11:43
*Risk Screen - Suicide (C-SSRS) Last Done: 02/20/25 10:20
*Nursing Disposition Last Done: 02/20/25 17:34
ED-Male Genitourinary Assessment Last Done: 02/20/25 11:43
Discharge Date and Time
Discharge Date/Time: 02/20/25 17:35
[2025-02-20 11:54] LABS: Hematocrit 33.0 % (39.0-52.0); Hemoglobin 10.4 g/dL (13.0-18.0); Mean Corp Hgb Conc. 31.5 g/dL (33.0-37.0); Mean Corpuscular Volume 85.7 fL (80.0-94.0); Nucleated Red Blood Cells % 0 % (-); Platelet Count 154 10^3/uL (130-400); Red Cell Dist. Width 15.5 % (11.5-14.5)
[2025-02-20 12:08] LABS: COVID-19 Antigen Negative (Negative)
[2025-02-20 12:24] LABS: ALT (SGPT) 19 U/L (0-50); AST (SGOT) 23 U/L (17-59); Albumin 4.0 g/dl (3.5-5.0); Alkaline Phosphatase 62 U/L (38-126); Blood Urea Nitrogen 32 mg/dl (9-20); Calcium 11.4 mg/dl (8.4-10.2); Carbon Dioxide 27 mmol/L (22-30); Chloride 100 mmol/L (98-107); Estimated Creatinine Clearance 37 ml/min; Glucose 132 mg/dl (70-99); Potassium 4.7 mmol/L (3.5-5.1); Sodium 133 mmol/L (135-145); Total Protein 7.4 g/dl (6.3-8.2); eGFR 44.78
[2025-02-20 13:34] LABS: Urine Character Cloudy (Clear)
[2025-02-20 14:21] LABS: Urine Red Blood Cell >100 /HPF (0-2); Urine White Cell 60-70 /HPF (0-5)
--- NOTE | 2025-02-20 14:30 | HPS.HSE ---
Addendum entered and electronically signed by Michael Doan MD 02/20/25 15:16:
This is an addendum to H&P written by Akanksha Willis on 02/20/2025. �Patient seen and examined independently with ORTHOTIC/PROSTHETIC CLINICIAN.
89-year-old male past medical history of atrial fibrillation on Xarelto, diastolic heart failure, heart block status post pacemaker, BPH, hypertension, hyperlipidemia, chronic lower extremity venous stasis, obesity, chronic congestion/cough, chronic
kidney disease, chronic hypercalcemia, history of ESBL E. coli UTIs, presenting for weakness, chills, urinary frequency with blood in the urine.
Vital signs unremarkable.
Labs show stable renal function. �Calcium of 11.4 higher than previously. �Stable hemoglobin 10.4.
Urinalysis shows 60-70 WBC. �+3 leukocyte esterase. �Positive nitrates. �COVID and flu negative.
CT abdomen pelvis shows multiple bilateral nonobstructing intrarenal calculi. �No ureteral calculus or hydronephrosis to suggest obstructive uropathy. �Moderate to large amount of left perinephric soft tissue stranding has progressed since prior
examination extending inferiorly from the lower pole of the kidney along the inferior perinephric space. �Also mild left para-aortic adenopathy. �Subtle mild wall thickening of the urinary bladder.
Patient with hematuria secondary to acute left-sided pyelonephritis.
Zosyn. �Urine culture. �Blood cultures. �Hold Xarelto for now.
Check chest x-ray due to worsening congestion/cough.
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 �Outpatient follow-up with endocrine.
Original Note:
Family Physician
-
Family Physician: Miguel Baker
Chief Complaint
-
Hematuria
History of Present Illness
89-year-old male with history atrial fibrillation on Xarelto, hypertension, hyperlipidemia, frequent UTIs who presents to the emergency department with daughter for evaluation of weakness and gross hematuria. Patient's daughter states that last
night at the family dinner on her father seemed weaker than his baseline. last night his noticed that his urine was pink/dark brown. he as having urinary frequency lats night. he ws noted to have chills last night. denied fever,
at home. he has chronic congestion. today he was sneezing more than usual. he was noted congested more than usual. he was having dry cough. denied LILLY, dizzy or syncope. denied chest pain, sob. denied abdominal pain,n,v,d.
CT concerning for pyelonephritis. Patient received a dose of ceftriaxone in ER. Admitting for further management
Medical History
Past Medical History
Past Medical History: Reports Other
Additional Past Medical History:
Colon polyps, hypertension, constipation, hydronephrosis, ureteral calculus, right bundle branch block, heart failure, hypertension, bradycardia, AV block, type 2 diabetes, ascending aorta dilation, dyslipidemia, UTI, iron deficiency anemia,
enlarged prostate, hemorrhoids
Past Surgical History: Reports Other
Additional Past Surgical History:
Pacemaker
Social History
Tobacco: Former Smoker
Alcohol: None
Personal:
Living: With Family
Family History
Family History: Not pertinent
Allergies / Home Medications
Allergies reflects when Allergies were last updated in [facility].
Home Medications with original date entered in [facility]
Allergy/Medication List:
Allergies
Allergy/AdvReac Type Severity Reaction Status Date / Time
No Known Allergies Allergy Verified 02/20/25 10:19
Home Medications
dutasteride 0.5 mg capsule 0.5 mg PO DAILY Urinary issue 07/26/16
rosuvastatin 20 mg tablet 20 mg PO DAILY High cholesterol 07/26/16
tamsulosin 0.4 mg capsule 0.4 mg PO DAILY 30 days #30 caps 02/24/20
polyethylene glycol 3350 17 gram oral powder packet 17 grams PO DAILYPRN PRN Constiaption 03/09/20
acetaminophen 500 mg tablet (Tylenol Extra Strength) 1,000 mg PO BIDPRN PRN mild pain 02/20/25
cholecalciferol (vitamin D3) 25 mcg (1,000 unit) tablet 25 mcg PO DAILY 02/20/25
furosemide 40 mg tablet 40 mg PO DAILY 02/20/25
irbesartan 300 mg tablet 300 mg PO DAILY 02/20/25
methenamine hippurate 1 gram tablet 1 g PO BID 02/20/25
nitrofurantoin monohydrate/macrocrystals 100 mg capsule 100 mg PO HS 02/20/25
rivaroxaban 20 mg tablet (Xarelto) 20 mg PO HS 02/20/25
Review of Systems
-
Constitutional: Reports Chills
EENT: Reports Runny Nose
Respiratory: Reports Cough and Trouble Breathing
Cardiac: Reports No Symptoms
Abdomen/GI: Reports No Symptoms
: Reports Frequency and Dark Urine
Musculoskeletal: Reports No Symptoms
Skin: Reports No Symptoms
Neurological: Reports No Symptoms
Endocrine: Reports No Symptoms
Hematologic/Lymphatic: Reports No Symptoms
Psych: Reports No Symptoms
Physical Exam
Vital Signs
Vital Signs
Temp Pulse Resp BP Pulse Ox
98.6 F 75 28 155/76 95
02/20/25 10:20 02/20/25 13:45 02/20/25 13:45 02/20/25 13:00 02/20/25 13:15
Physical Exam
General: Well Developed, Well Nourished and No Apparent Distress
HEENT: NormoCephalic, Moist mucous membranes and Atraumatic
Respiratory: Clear
Cardiac: S1/S2 and Regular Rhythm; No Murmur or Rub
GI: Soft, Non Tender, Non Distended and Normal Bowel Sounds; No Organomegaly
Rectal: Deferred by Provider
Musculoskeletal: No Clubbing, No Cyanosis and No Edema
Skin: No Rash
Neuro: AO x 3 and Nonfocal/grossly intact
Psych: Calm
Laboratory Results
-
02/20/25 11:40
02/20/25 11:40
Laboratory Results
Total Bilirubin 1.3 mg/dl (0.2-1.3) 02/20/25 11:40
AST 23 U/L (17-59) 02/20/25 11:40
ALT 19 U/L (0-50) 02/20/25 11:40
Alkaline Phosphatase 62 U/L (38-126) 02/20/25 11:40
Data Reviewed
-
CT Scan: Report Reviewed by me
Lab Data: Labs Reviewed by me
Impression/Plan
-
# Pyelonephritis
- CT with Multiple bilateral nonobstructing intrarenal calculi. No ureteral calculus or hydronephrosis to suggest obstructive uropathy. No bladder calculus.Moderate to large amount of left perinephric soft tissue stranding, has progressed since
prior examination, extending inferiorly from the lower pole of the kidney along the inferior perinephric space. This raises possibility of superimposed infection/pyelonephritis. Also associated mild left para-aortic adenopathy at the renal level.
Clinical correlation recommended.Stable mild wall thickening of the urinary bladder, and stable subtle soft tissue stranding at the peripheral margin. Likely chronic in nature, though cannot exclude mild inflammatory changes/cystitis in the proper
clinical setting.
-IV zosyn continued
- Tylenol as needed for fever or pain
-bllod culture sent from ER
# Cough/congestion likely viral
- Will obtain chest x-ray
- COVID flu negative
- Mucinex as needed for cough
- Oxygen UA:
# Anemia of chronic disease
- Hemoglobin stable at 10.4, no active bleeding
- Continue to monitor
# CKD stage IIIb
- Creatinine 1.5
- Continue to monitor
# Chronic hypercalcemia
- Calcium 11.4, fluids continued
- Continue to monitor
#diastolic heart failure
Lower extremity edema noted
-Echo left ventricular ejection fraction of 60 to 65%
- Furosemide continued
- Strict BESSIE, daily weight
#paroxysmal atrial fib.
#History of heart block status post pacemaker implantation
-held xarelto due to hematuria.
#BPH with LUTS- continue with Flomax and Proscar
#HTN primary -on avapro 300mg daily
#HLD continue with statin
#Chronic lower extremity venous stasis
#Obesity due to excess calories - Encourage healthy diet / exercise with goal of weight loss.
DVT PPx: l on Xarelto
FULL CODE
[2025-02-20] MEDS: ROCEPHIN 1000 MG IV (14:33)
--- NOTE | 2025-02-20 15:55 | EDCM ---
Reviewed chart and met with pt and daughter Arianne verdugo in ED. Lives with his in raised ranch home, basement is ground level.
Independent in ADLs, personal care and ambulation at baseline. Uses rolling walker, also has quad cane and grab bars in shower.
PMH includes Afib, HTN, HLD, frequent UTIs, NIDDM, Diastolic HF, Pacemaker
Confirms prescription coverage.
Hx [facility], no hx SNF
PCP: Miguel Baker
Pharmacy: [facility]
Discharge disposition pending ongoing medical evaluation, CM will continue to follow for all discharge planning needs.
--- NOTE | 2025-02-20 18:06 | PTCARENOTE ---
pt transferred to 4w. Pt pulled over from stretcher to bed. Pt unable to answer orientation questions, pt stood up at bedside to pee with max assist. No c/o pain. safety measures in place call angel within reach, bed alarm plugged in.
[2025-02-20] MEDS: ZOSYN 50 IV (20:19)
[2025-02-20] MEDS: TYLENOL 650 MG PO (20:25)
[2025-02-21] VITALS (8 sets, daily range): BP systolic 90–150; BP diastolic 40–78; PULSE 60–91; O2SAT 95–100; BMI 38.6
[2025-02-21] MEDS: ZOSYN 50 IV ×4 (02:40→20:17)
[2025-02-21] MEDS: FLOMAX 0.4 MG PO (08:36)
[2025-02-21] MEDS: CRESTOR 20 MG PO (08:36)
[2025-02-21] MEDS: AVAPRO 300 MG PO (08:36)
[2025-02-21] MEDS: LASIX 40 MG PO (08:37)
[2025-02-21] MEDS: PROSCAR 5 MG PO (08:37)
[2025-02-21] MEDS: DESENEX/MITRAZOL/ZEASORB 1 APPLIC TOPICAL ×2 (08:37→20:18)
[2025-02-21 09:27] LABS: Hematocrit 35.5 % (39.0-52.0); Hemoglobin 11.2 g/dL (13.0-18.0); Mean Corp Hgb Conc. 31.5 g/dL (33.0-37.0); Mean Corpuscular Volume 86.6 fL (80.0-94.0); Platelet Count 146 10^3/uL (130-400); Red Cell Dist. Width 15.5 % (11.5-14.5)
[2025-02-21 09:41] LABS: Blood Urea Nitrogen 28 mg/dl (9-20); Calcium 11.5 mg/dl (8.4-10.2); Carbon Dioxide 24 mmol/L (22-30); Chloride 101 mmol/L (98-107); Estimated Creatinine Clearance 34 ml/min; Glucose 109 mg/dl (70-99); Potassium 4.0 mmol/L (3.5-5.1); Sodium 135 mmol/L (135-145); eGFR 41.44
--- NOTE | 2025-02-21 12:40 | W.PN.HOSP.TC ---
Addendum entered and electronically signed by Ish Rousseau MD 02/21/25 14:12:
I saw and evaluated the patient. I reviewed the resident�s note and agree with findings and plan as documented in the resident�s note.
1. Complicated urinary tract infection with left-sided pyelonephritis -UA showing pyuria and bacteriuria. CT abdomen pelvis showing left-sided perinephric fat stranding and intraparenchymal multiple stones. No costovertebral angle tenderness.
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 Currently maintained on Zosyn continue. Follow-up urine culture report which is growing gram-negative bacilli. Blood culture report pending as well.
2. Primary hyperparathyroidism and hypercalcemia -patient have diagnosis of primary hyperparathyroidism and related hypercalcemia. Discussed with daughter who mention patient has seen by feller machine operator 1 year back and at that point patient was
considered to be started on possible bisphosphonate therapy. This was also postponed due to possibly improving calcium level. Patient also was discussed to have possible parathyroid surgery although deemed to be high risk. Currently patient
calcium of 11.5. Will provide some IV fluid already on Lasix which should help to improve calcium balance. Will involve nephrology if not improved
3. Thoracic aorta ruptured plaque -CT chest from August 21 showing patient having descending thoracic aorta plaque which is ruptured. No complicating finding and no actions were taken that ER visit. Discussed with vascular surgeon on-call who in
light of no active symptoms recommended to follow-up in outpatient in office. We will not be able to do a repeat CT chest with contrast due to underlying renal dysfunction and a CT chest without contrast has been ordered. Monitor for any signs of
new aortic dissection/rupture
4. 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
Care plan discussed with patient daughter over the phone.
Total time spent 55 minutes
Original Note:
Today's Communication/Plan
-
Continue with IV Zosyn
Follow-up on blood and urine cultures
Assessment / Plan
Assessment / Plan
# Complicated UTI with pyelonephritis
- CT with Multiple bilateral nonobstructing intrarenal calculi. No ureteral calculus or hydronephrosis to suggest obstructive uropathy. No bladder calculus.Moderate to large amount of left perinephric soft tissue stranding, has progressed since
prior examination, extending inferiorly from the lower pole of the kidney along the inferior perinephric space. This raises possibility of superimposed infection/pyelonephritis. Also associated mild left para-aortic adenopathy at the renal level.
Clinical correlation recommended.Stable mild wall thickening of the urinary bladder, and stable subtle soft tissue stranding at the peripheral margin. Likely chronic in nature, though cannot exclude mild inflammatory changes/cystitis in the proper
clinical setting.
- IV zosyn continued
- Tylenol as needed for fever or pain
- blood culture ngtd
- Urine culture pending ; history of ESBL
# Cough/congestion likely viral
- CXR with possible left lower lobe pneumonia ; not very clear; patient is currently on IV Zosyn which should be sufficient for this
- COVID flu negative
- Mucinex as needed for cough
# Anemia of chronic disease
- Hemoglobin stable
- Continue to monitor
# CKD stage IIIb
- Creatinine 1.5--->1.6(1.4 appears to be baseline for him)
- Continue to monitor
# Chronic hypercalcemia
- Calcium 11.4--->11.5, fluids continued
- Continue to monitor
- unclear if he was ever worked up for this
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
#diastolic heart failure
Lower extremity edema noted
-Echo left ventricular ejection fraction of 60 to 65%
- Furosemide continued
- Strict BESSIE, daily weight
#paroxysmal atrial fib.
#History of heart block status post pacemaker implantation
-held xarelto due to hematuria.
#BPH with LUTS- continue with Flomax and Proscar
#HTN primary -on avapro 300mg daily
#HLD continue with home statin
#Chronic lower extremity venous stasis
#Obesity due to excess calories - Encourage healthy diet / exercise with goal of weight loss.
DVT PPx: Xarelto
FULL CODE
Anticipated Discharge: 24 - 48 hours
Subjective/Interval History
-
Date of Service: February 21, 2025
2 episodes of low-grade fever last night. Other vitals remained stable.
Objective Data
-
Labs:
Laboratory Results
02/21/25
08:23
WBC 10.1
Hgb 11.2 L
Hct 35.5 L
Plt Count 146
Sodium 135
Potassium 4.0
Chloride 101
Carbon Dioxide 24
BUN 28 H
Creatinine 1.6 H
Glucose 109 H
Calcium 11.5 H
Vital Signs:
Vital Signs
Temp Pulse Resp BP Pulse Ox
99.3 F 63 19 116/63 94
02/21/25 11:27 02/21/25 11:27 02/21/25 11:27 02/21/25 11:27 02/21/25 11:27
I&O
02/20/25 02/21/25 02/22/25
06:59 06:59 06:59
Output Total 850 / 850
Balance -850 / -850
Review of Systems
-
History Source: Patient
Respiratory: Denies Trouble Breathing
Cardiac: Denies Chest Pain
Abdomen/GI: Denies Abdominal Pain
Physical Exam
-
General: Well Developed and No Apparent Distress
HEENT: Normocephalic, Atraumatic and Moist Mucous Membranes
Respiratory: Clear to Auscultation and Non Labored Respirations
Cardiac: Regular Rhythm and S1/S2
GI: Soft, Nontender, Nondistended and Normal Bowel Sounds
Genito-urinary: No Costovertebral Tender
Musculoskeletal: No Clubbing
Neuro: Awake, Alert, No Motor Deficits and Nonfocal/Grossly Intact
Psych: Calm
Data Reviewed
-
Diagnostic Radiology: Report Reviewed by me, Discussed with Physician and Discussed with Patient
CT Scan: Report Reviewed by me, Discussed with Physician and Discussed with Patient
Labs: Labs Reviewed by me, Discussed with Physician and Discussed with Patient
[2025-02-21] MEDS: NSS 1000 IV (14:29)
[2025-02-22] MEDS: ZOSYN 50 IV ×4 (02:52→19:39)
[2025-02-22 03:31] VITALS: BP 126/65
[2025-02-22 06:00] VITALS: BMI 38.3
[2025-02-22 07:37] LABS: Hematocrit 31.0 % (39.0-52.0); Hemoglobin 9.8 g/dL (13.0-18.0); Mean Corp Hgb Conc. 31.6 g/dL (33.0-37.0); Mean Corpuscular Volume 86.8 fL (80.0-94.0); Platelet Count 149 10^3/uL (130-400); Red Cell Dist. Width 15.6 % (11.5-14.5)
[2025-02-22 08:20] LABS: Blood Urea Nitrogen 29 mg/dl (9-20); Calcium 10.8 mg/dl (8.4-10.2); Carbon Dioxide 25 mmol/L (22-30); Chloride 102 mmol/L (98-107); Estimated Creatinine Clearance 34 ml/min; Glucose 96 mg/dl (70-99); Potassium 3.5 mmol/L (3.5-5.1); Sodium 132 mmol/L (135-145); eGFR 41.44
[2025-02-22 08:21] VITALS: BP 126/66
[2025-02-22] MEDS: PROSCAR 5 MG PO (08:23)
[2025-02-22] MEDS: FLOMAX 0.4 MG PO (08:23)
[2025-02-22] MEDS: AVAPRO 300 MG PO (08:23)
[2025-02-22] MEDS: CRESTOR 20 MG PO (08:23)
[2025-02-22] MEDS: DESENEX/MITRAZOL/ZEASORB 1 APPLIC TOPICAL ×2 (08:24→19:46)
[2025-02-22 11:16] VITALS: BP 114/58
--- NOTE | 2025-02-22 14:51 | W.PN.HOSP.TC ---
Today's Communication/Plan
-
maintain on aosyn
f/u calcium level
continue pt/ot
Assessment / Plan
Assessment / Plan
1. Complicated urinary tract infection with left-sided pyelonephritis from ESBL Ecoli -UA showing pyuria and bacteriuria. CT abdomen pelvis showing left-sided perinephric fat stranding and intraparenchymal multiple stones. No costovertebral angle
tenderness. 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 Patient always isolates ESBL E. coli in the urine. Currently maintained on Zosyn continue.
2. Primary hyperparathyroidism and hypercalcemia -patient have diagnosis of primary hyperparathyroidism and related hypercalcemia. Discussed with daughter who mention patient has seen by clay caster 1 year back and at that point patient was
considered to be started on possible bisphosphonate therapy. This was also postponed due to possibly improving calcium level. Patient also was discussed to have possible parathyroid surgery although deemed to be high risk. Admission calcium of
11.5, provided 500 mL normal saline bolus and Calcium down to 10.8.
3. Thoracic aorta ruptured plaque -CT chest from August 21 showing patient having descending thoracic aorta plaque which is ruptured. No complicating finding and no actions were taken that ER visit. Discussed with vascular surgeon on-call who in
light of no active symptoms recommended to follow-up in outpatient in office. Unable to get CT chest angio with contrast due to renal dysfunction. CT chest without contrast unable to see mucosal detail although the size of aorta identical to
previous imaging.
4. 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
5. History of nephrolithiasis -patient have undergone ureteral stent/cystoscopy by Dr. Almazan in the past. CT abdomen pelvis showing again multiple small left kidneys parenchymal stones. This is acting likely as a needles of recurrent ESBL E.
coli infection. Unfortunately patient have uncontrolled hyperparathyroidism/hypercalcemia and causing more kidney stone
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 Not voicing any complains. No neurological abnormalities. deferring further
imagine/MR spine.
Complex medical problems
Daughter update over the phone
Anticipated Discharge: > 48 hours
Subjective/Interval History
-
Date of Service: February 22, 2025
Patient remains afebrile
no reported back pain
Objective Data
-
Labs:
Laboratory Results
02/22/25
07:23
WBC 7.1
Hgb 9.8 L
Hct 31.0 L
Plt Count 149
Sodium 132 L
Potassium 3.5
Chloride 102
Carbon Dioxide 25
BUN 29 H
Creatinine 1.6 H
Glucose 96
Calcium 10.8 H
Vital Signs:
Vital Signs
Temp Pulse Resp BP Pulse Ox
98.4 F 71 18 114/58 98
02/22/25 11:16 02/22/25 11:16 02/22/25 11:16 02/22/25 11:16 02/22/25 11:16
I&O
02/21/25 02/22/25 02/23/25
06:59 06:59 06:59
Intake Total 1100 / 1100 480 / 480
Output Total 850 / 850 600 / 600 550 / 550
Balance -850 / -850 500 / 500 -70 / -70
Review of Systems
-
Respiratory: Reports No Symptoms
Cardiac: Reports No Symptoms
Abdomen/GI: Reports No Symptoms
Physical Exam
-
General: No Apparent Distress
HEENT: Negative Oxygen
Respiratory: Clear to Auscultation and Other (Kyphotic spine)
Cardiac: Regular Rhythm and S1/S2
GI: Soft, Nontender and Nondistended
Genito-urinary: No Costovertebral Tender
Neuro: Awake, Alert, No Motor Deficits and Nonfocal/Grossly Intact
Psych: Calm
[2025-02-22 15:29] VITALS: BP 122/64
[2025-02-22 19:56] VITALS: BP 127/62
[2025-02-22 23:36] VITALS: BP 119/62
[2025-02-23] MEDS: ZOSYN 50 IV ×3 (02:30→21:01)
[2025-02-23] MEDS: FLUSH (NSS) 2 FLUSH IV (03:03)
[2025-02-23 03:25] VITALS: BP 133/67
[2025-02-23 06:00] VITALS: BMI 38.0
[2025-02-23] MEDS: PROSCAR 5 MG PO (08:06)
[2025-02-23] MEDS: CRESTOR 20 MG PO (08:06)
[2025-02-23] MEDS: AVAPRO 300 MG PO (08:06)
[2025-02-23] MEDS: DESENEX/MITRAZOL/ZEASORB 1 APPLIC TOPICAL ×2 (08:06→21:02)
[2025-02-23] MEDS: FLOMAX 0.4 MG PO (08:06)
[2025-02-23 08:47] VITALS: BP 117/69
[2025-02-23 09:29] LABS: Hematocrit 32.1 % (39.0-52.0); Hemoglobin 10.0 g/dL (13.0-18.0); Mean Corp Hgb Conc. 31.2 g/dL (33.0-37.0); Mean Corpuscular Volume 87.9 fL (80.0-94.0); Platelet Count 167 10^3/uL (130-400); Red Cell Dist. Width 15.7 % (11.5-14.5)
[2025-02-23 09:59] LABS: Blood Urea Nitrogen 25 mg/dl (9-20); Calcium 10.7 mg/dl (8.4-10.2); Carbon Dioxide 27 mmol/L (22-30); Chloride 99 mmol/L (98-107); Estimated Creatinine Clearance 32 ml/min; Glucose 178 mg/dl (70-99); Potassium 3.2 mmol/L (3.5-5.1); Sodium 133 mmol/L (135-145); eGFR 38.53
[2025-02-23 11:47] VITALS: BP 114/59
[2025-02-23] MEDS: KLOR-CON 20 MEQ PO (12:06)
--- NOTE | 2025-02-23 15:04 | W.PN.HOSP.TC ---
Today's Communication/Plan
-
MRI T spine
maintain on abx
replace K
Assessment / Plan
Assessment / Plan
1. Complicated urinary tract infection with left-sided pyelonephritis from ESBL Ecoli -UA showing pyuria and bacteriuria. CT abdomen pelvis showing left-sided perinephric fat stranding and intraparenchymal multiple stones. No costovertebral angle
tenderness. 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 Patient always isolates ESBL E. coli in the urine. Currently maintained on Zosyn , day 4 today.
2. Primary hyperparathyroidism and hypercalcemia -patient have diagnosis of primary hyperparathyroidism and related hypercalcemia. Discussed with daughter who mention patient has seen by receptionist doctor's office 1 year back and at that point patient was
considered to be started on possible bisphosphonate therapy. This was also postponed due to possibly improving calcium level. Patient also was discussed to have possible parathyroid surgery although deemed to be high risk. Admission calcium of
11.5, provided 500 mL normal saline bolus and Calcium down to 10.7 today.
3. Thoracic aorta ruptured plaque -CT chest from August 21 showing patient having descending thoracic aorta plaque which is ruptured. No complicating finding and no actions were taken that ER visit. Discussed with vascular surgeon on-call who in
light of no active symptoms recommended to follow-up in outpatient in office. Unable to get CT chest angio with contrast due to renal dysfunction. CT chest without contrast unable to see endothelial detail although the size of aorta identical to
previous imaging.
4. 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
5. History of nephrolithiasis -patient have undergone ureteral stent/cystoscopy by Dr. Almazan in the past. CT abdomen pelvis showing again multiple small left kidneys parenchymal stones. This is acting likely as a needles of recurrent ESBL E.
coli infection. Unfortunately patient have uncontrolled hyperparathyroidism/hypercalcemia and causing more kidney stone
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 Not voicing any complains. No neurological abnormalities. Discussed with
neurosurgery who recommended MRI T-spine. May not be possible with pacemaker in place. Patient at risk of paraplegia/LE weakness if further vertebral collapse/spinal canal compression occurs.
7. Hypokalemia - replaced orally today
Complex medical problems
Daughter update over the phone 02/21,
Anticipated Discharge: 24 - 48 hours
Subjective/Interval History
-
Date of Service: February 23, 2025
no complains in night
no new issues reported
Objective Data
-
Labs:
Laboratory Results
02/23/25
09:20
WBC 5.7
Hgb 10.0 L
Hct 32.1 L
Plt Count 167
Sodium 133 L
Potassium 3.2 L
Chloride 99
Carbon Dioxide 27
BUN 25 H
Creatinine 1.7 H
Glucose 178 H
Calcium 10.7 H
Vital Signs:
Vital Signs
Temp Pulse Resp BP Pulse Ox
97.9 F 61 16 114/59 97
02/23/25 11:47 02/23/25 11:47 02/23/25 11:47 02/23/25 11:47 02/23/25 11:47
I&O
02/22/25 02/23/25 02/24/25
06:59 06:59 06:59
Intake Total 1100 / 1100 720 / 720
Output Total 600 / 600 550 / 550
Balance 500 / 500 170 / 170
Review of Systems
-
Respiratory: Reports No Symptoms
Cardiac: Reports No Symptoms
Abdomen/GI: Reports No Symptoms
Physical Exam
-
General: No Apparent Distress
HEENT: Negative Oxygen
Respiratory: Clear to Auscultation and Other (Kyphotic spine)
Cardiac: Regular Rhythm and S1/S2
GI: Soft, Nontender and Nondistended
Genito-urinary: No Costovertebral Tender
Neuro: Awake, Alert, No Motor Deficits and Nonfocal/Grossly Intact
Psych: Calm
[2025-02-23] MEDS: ZOSYN IV (15:24)
--- NOTE | 2025-02-23 15:46 | CON.NS ---
Consultation
-
Date/Time Consultation Performed: 02/23/2025; 16:00
Performing Provider: Josué
Chief Complaint
History of Present Illness
This is a neurosurgical consultation on a 89-year-old gentleman who presented on 02/20/2025 with weakness, chills, and urinary frequency with blood in the urine. He was found to have likely UTI. He had a CT of the abdomen/pelvis that was performed
which demonstrated thoracic compression deformity. Neurosurgery consulted for further input.Patient is being treated for complicated urinary tract infection with left-sided pyelonephritis. He is on Zosyn and has a history of ESBL E. coli recurrent
UTI in the past. CT of the abdomen/pelvis did demonstrate T6/T7 vertebral body destruction, which is a chronic finding with kyphosis.
Patient seen examined. Daughter is at bedside. Patient and daughter deny any significant upper back pain, interscapular pain. Daughter reports patient has intermittent left leg numbness, but this is chronic. She reports since/admits that he has
had several hospitalizations, 2 for sepsis and the others for infections, but she is unable to recall whether he had any back pain associated with those infections.
Review of Systems
-
Template review of systems include constitutional, ENT, cardio vascular, respiratory, GI, , neurologic, endocrine, hematologic, musculoskeletal was performed, and was negative except for as stated in HPI.
Medication and Allergies
Home Medications
Home Medications
�Medication �Instructions �Recorded
dutasteride 0.5 mg capsule 0.5 mg PO DAILY Urinary issue 07/26/16
rosuvastatin 20 mg tablet 20 mg PO DAILY High cholesterol 07/26/16
tamsulosin 0.4 mg capsule 0.4 mg PO DAILY 30 days #30 caps 02/24/20
polyethylene glycol 3350 17 gram 17 grams PO DAILYPRN PRN 03/09/20
oral powder packet Constiaption
acetaminophen 500 mg tablet 1,000 mg PO BIDPRN PRN mild pain 02/20/25
(Tylenol Extra Strength)
cholecalciferol (vitamin D3) 25 25 mcg PO DAILY Supplement 02/20/25
mcg (1,000 unit) tablet
furosemide 40 mg tablet 40 mg PO DAILY Fluid 02/20/25
Retention/Swelling
irbesartan 300 mg tablet 300 mg PO DAILY Blood Pressure 02/20/25
methenamine hippurate 1 gram tablet 1 g PO BID PROPHYLAXIS 02/20/25
nitrofurantoin 100 mg PO HS Infection 02/20/25
monohydrate/macrocrystals 100 mg
capsule
rivaroxaban 20 mg tablet (Xarelto) 20 mg PO HS Blood Clot 02/20/25
Prevention/Tx
Allergies
Allergies
Allergy/AdvReac Type Severity Reaction Status Date / Time
No Known Allergies Allergy Verified 02/20/25 10:19
Physical Exam
-
Exam:
Awake, alert, no apparent distress
Head is normocephalic
Cranial nerves II through XII are grossly intact
Motor: 5/5 strength bilaterally in upper and lower extremity
No tenderness to palpation over the thoracic spine
Breathing is nonlabored
Abdomen is soft
Extremities are warm
Chest CT without IV contrast performed on 02/21/2025 demonstrates lytic process involving the T6-T7 vertebral body, primarily centered around the disc space, with focal kyphosis at these levels. No obvious evidence of significant retropulsion is
seen. Spinal canal appears to be overall patent. This was compared to previous CT of the chest performed on 08/23/2024, At which time there was a similar process at the these vertebral levels noted. Additionally, this finding is also noted on
lateral chest x-ray performed in January 2023, as well as early findings of this in September 2021.
Problems
-
Problem Status Onset Code
Weakness Acute R53.1
Acute pyelonephritis Acute N10
Assessment / Plan
-
This is an 89-year-old gentleman, with incidentally noted destruction of the T6-T7 vertebral body into space. Retrospective review demonstrates that this is likely a chronic finding, and was present on imaging studies at least 6 months ago, and
likely even prior when reviewing chest x-ray from January 2023, maybe even 2021. Patient is asymptomatic, therefore, no further imaging/testing is recommended from neurosurgical standpoint. No follow-up is needed.
Discussed with patient's daughter, and with hospital medicine for
[2025-02-23 16:07] VITALS: BP 143/82
[2025-02-23 19:53] VITALS: BP 134/68
[2025-02-23 23:30] VITALS: BP 138/78
--- NOTE | 2025-02-24 01:34 | W.PN.UPDATE ---
Update Note
Progress Note Update
RN reported patient agitated, making verbal threats, attempts to exist his room, he is being paranoid saying 'medications are poison' and refusing. Patient seen, Oriented to name, and place, sitting at the end side of the bed, following commands
if he choose to. Adamant he wants to leave and needs his pants and jacket. Denies any pain or difficulty voiding.
While this SLUNK SKINNER was there he stands up and tries to walk out of the room. This SLUNK SKINNER, staff tried calming patient in calm approach. while nurses were trying to get him in bed, he started making threats to shooting, and noted pushing staff.
security was called.
Zyprexa IM, restraints ordered
Bed alarm maintained.
[2025-02-24] MEDS: ZYPREXA 10 MG IM (02:05)
[2025-02-24] MEDS: ZOSYN 50 IV ×2 (02:29→08:16)
[2025-02-24 02:54] VITALS: BP 149/77
--- NOTE | 2025-02-24 04:59 | PTCARENOTE ---
Approx [id number]. During this time interval, pt exhibited persistent agitation and repeatedly exited his assigned room into the hallway. Numerous attempts at verbal deescalation, limit setting, redirection, and environmental modification were
implemented by nursing staff and die developer without sustained efficacy. Pt repeatedly instructed staff to leave him unattended and insisted on remaining in the hallway. He inquired regarding the location of an exit door. The pt was able to respond
accurately to formal orientation questioning; however, he demonstrated disorganization and confusion specifically related to his current physical location. He was redirected back to his bed on multiple occasions. The pt adamantly refused to sit in a
chair which is his typical baseline to sleep at night per report and declined sitting on the bed with the bed alarm. Pt would place self at foot of bed away and refuse the bed alarm area of the bed, even with repositioning. He insisted on sitting at
the foot of the bed with a walker positioned in front of him in order to monitor hallway activity. Despite repeated redirection, the pt yelled at staff and made multiple attempts to stand. Multiple nursing staff and compressor operator engaged in repeated efforts
to provide reassurance and deescalation. The pt issued numerous verbal threats including statements such as 'don't take my gun away,' if someone touched the bed alarm. The pt verbally warned staff to stay away. The pt persistently demanded to be
taken downstairs and requested his jacket and pants. Nursing staff continued repeated reorientation using calm, non confrontational approach. Additional non pharmacologic deescalation strategies were attempted without success. The PULMONOLOGY PHYSICIAN was notified.
The pt subsequently raised his walker in a threatening manner toward a PCT. The pt expressed refusal of all medications and repeatedly stated a fixed belief that staff were attempting to poison him. The PULMONOLOGY PHYSICIAN assessed the pt at bedside. Melatonin was
ordered, pt refused oral meds. The pt attempted to physically push another nurse within the room. Due to escalating safety concerns, security was called. Initial deescalation was attempted with one global security architect, followed by additional officers
as the situation progressed (three total and present in room). The pt demonstrated intermittent calmness when not subjected to redirection or limit setting but increasingly hostile when staff attempted to enforce safety measures. After approx 30
min, the pt's behavior escalated to severe aggression during explanation and attempted administration of IM med, see MAR. Five staff members remained present in room in an effort to maintain safety and deescalate situation while more remained
outside. During IM med administration to deltoid, pt exhibited significant physical resistance, including kicking and forceful flailing of upper extremities. Medication was administered with observable positive effect for approx three hours. Given
cont aggressive behavior and imminent risk of harm to self and others, pt was placed in four side rails with soft limb restraints applied to left and right wrists following repeated unsuccessful verbal deescalation attempts. Upon nursing
reassessment post incident, the pt continued to say 'are you trying to kill me? don't poison me. I know it is not medication.' When nursing staff attempted to replace monitoring electrodes, pt reiterated beliefs that staff were attempting to cause
him harm. The pt intermittently attempted to forcibly remove restraints and then would cease activity and lie back down. Nursing staff cont ongoing reassurance, reorientation, education, and close monitoring. Approx [id number]. Bed alarm rang,
multiple staff entered room. Pt was close to doorway. Pt pushed multiple staff, threw blankets from bedside table to ground aggressively, pushed rolling walker aggressively, and yelled. Pt attempted to kick and push multiple times while team support
continued to have pt go back into bed. Nurse almost called code purple but pt was calm for 1-2 min. Pt then suddenly began being aggressive again and kicking in bed, attempting to grab hair, push/pull on staff arms, attempting to squeeze nurse hand.
Restraints were placed on pt again. Pt returned to calm attitude for time being.
[2025-02-24 06:00] VITALS: BMI 39.7
[2025-02-24] MEDS: FLUSH (NSS) 1 FLUSH IV ×3 (08:16→16:03)
[2025-02-24] MEDS: DESENEX/MITRAZOL/ZEASORB 1 APPLIC TOPICAL (08:17)
[2025-02-24 08:30] VITALS: BP 149/66
[2025-02-24] MEDS: AVAPRO PO (08:31)
[2025-02-24] MEDS: FLOMAX PO (08:31)
[2025-02-24] MEDS: CRESTOR PO (08:31)
[2025-02-24] MEDS: PROSCAR PO (08:31)
[2025-02-24 09:50] LABS: Hematocrit 34.0 % (39.0-52.0); Hemoglobin 10.6 g/dL (13.0-18.0); Mean Corp Hgb Conc. 31.2 g/dL (33.0-37.0); Mean Corpuscular Volume 87.4 fL (80.0-94.0); Platelet Count 203 10^3/uL (130-400); Red Cell Dist. Width 15.6 % (11.5-14.5)
[2025-02-24 09:53] LABS: Blood Urea Nitrogen 21 mg/dl (9-20); Calcium 11.1 mg/dl (8.4-10.2); Carbon Dioxide 27 mmol/L (22-30); Chloride 102 mmol/L (98-107); Estimated Creatinine Clearance 34 ml/min; Glucose 122 mg/dl (70-99); Potassium 3.4 mmol/L (3.5-5.1); Sodium 137 mmol/L (135-145); eGFR 41.44
--- NOTE | 2025-02-24 12:55 | W.PN.HOSP.TC ---
Today's Communication/Plan
-
consult ID
await psych input
Assessment / Plan
Assessment / Plan
pt is an 89 year old male
acute paranoia vs delirium vs encephalopathy (from infection, waking up at night, or any combination thereof)--await psych input--hoping to minimize nighttime interruptions
Complicated urinary tract infection with left-sided pyelonephritis from ESBL E. coli--CT abdomen pelvis showing left-sided perinephric fat stranding and intraparenchymal multiple stones-- Patient has history of ESBL E. coli recurrent urinary tract
infection in the past and likely from renal stone acting as a nidus-- Currently maintained on Zosyn , day 5 today--will consult ID and prefer to have once daily dosing if appropriate--should probably have at least 14 days of treatment but will defer
to ID
Primary hyperparathyroidism and hypercalcemia (possibly related to confusion?)- -patient have diagnosis of primary hyperparathyroidism and related hypercalcemia-- daughter mentioned to previous provider that patient has seen endocrine ~ 1 year back
and at that point patient was considered to be started on possible bisphosphonate therapy. This was also postponed due to possibly improving calcium level. Patient also was discussed to have possible parathyroid surgery although deemed to be high
risk. Admission calcium of 11.5--current calcium 11.1
Thoracic aorta ruptured plaque -CT chest from August 21 showing patient having descending thoracic aorta plaque which was ruptured at that time-- No complicating findings and no actions were taken tat hat ER visit. Discussed with vascular surgeon
on-call who in light of no active symptoms recommended to follow-up in outpatient in office. Unable to get CT chest angio with contrast due to renal dysfunction. CT chest without contrast not helpful
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
History of nephrolithiasis -patient have undergone ureteral stent/cystoscopy by Dr. Cristina in the past-- CT abdomen pelvis showing again multiple small left kidneys parenchymal stones. This is acting likely as a nidus of recurrent ESBL E. coli
infection--Unfortunately uncontrolled hyperparathyroidism/hypercalcemia not helping
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
2021--nothing further to do
Hypokalemia - replete
Daughter update over the phone by Dr. Jamilah Rousseau 02/21,, and myself in person 02/24
Anticipated Discharge: 24 - 48 hours
Subjective/Interval History
-
Date of Service: February 24, 2025
pt seems confused--unclear if any underlying dementia or sundowning at home (daughter at bedside says no)
events of last night reviewed--paranoid, thinking we were poisoning him with the antibiotics--exhibited threatening behavior, therefore needed IM zyprexa, restraints, bed alarm
Objective Data
-
Labs:
Laboratory Results
02/24/25
08:08
WBC 6.1
Hgb 10.6 L
Hct 34.0 L
Plt Count 203 D
Sodium 137
Potassium 3.4 L
Chloride 102
Carbon Dioxide 27
BUN 21 H
Creatinine 1.6 H
Glucose 122 H
Calcium 11.1 H
Vital Signs:
max temp for 24 hours
02/23/25
16:07
Temp 99.5 F
Vital Signs
Temp Pulse Resp BP Pulse Ox
97.2 F 82 22 149/66 98
02/24/25 08:52 02/24/25 08:31 02/24/25 08:30 02/24/25 08:31 02/24/25 08:38
I&O
02/23/25 02/24/25 02/25/25
06:59 06:59 06:59
Intake Total 720 / 720 840 / 840
Output Total 550 / 550
Balance 170 / 170 840 / 840
Review of Systems
-
Unable to obtain full review of systems at this time due to: Other (pt seems confused)
Physical Exam
-
General: Well Developed, Well Nourished, No Apparent Distress and Other (sitting in the recliner chair)
HEENT: Normocephalic and Atraumatic; Negative Oxygen
Respiratory: Clear to Auscultation; Negative Wheezes or Rhonchi
Cardiac: Regular Rhythm and S1/S2; Negative Murmur
GI: Soft, Nontender, Nondistended and Normal Bowel Sounds
Musculoskeletal: No Clubbing and No Cyanosis; Negative No Edema (2+ LE edema bilaterally)
Skin: Warm
Neuro: Awake
Psych: Apparent Dementia (vs delirium)
--- NOTE | 2025-02-24 13:57 | CON.ID ---
Consultation
-
Date/Time Consultation Requested: February 24, 2025 1303
Date/Time Consultation Performed: February 24, 2025 1400
Requesting Provider: Dr. Emma Fontaine
Performing Provider: Dr. Arianne Laurent
Reason for Consultation: ESBL UTI
Chief Complaint / Past History
Chief Complaint
Weakness
History of Present Illness
History obtained predominantly from the patient's daughter at bedside. He is an 89-year-old male with history of nephrolithiasis, ESBL E. coli UTI, BPH, atrial fibrillation, HFr EF who presented to the hospital February 20 due to weakness. Family
noted patient was not himself Aicha Eve. He was complaining of chills. No fever. Positive malaise. Reportedly increased urine frequency. He states no flank pain. His noted blood in the urine. He therefore was brought to the ER.
Temperature 100.6. UA positive nitrite, leukocyte esterase, 60�70 white blood cells. Urine culture returned as ESBL�E. coli. Blood cultures negative. He was started on Zosyn. Patient was improving until yesterday when daughter noted the patient
was confused which was new. Overnight patient was woken up during antibiotic administration around 2 AM. Patient was agitated thinking he was being poisoned by medication. He received 1 dose of olanzapine. Today patient continues to be confused.
He does not know where he is. He states his daughter did not visit for 3 days when in fact she comes in every day. Daughter is concerned regarding Zosyn as a possible cause of his confusion. The gross hematuria has resolved. Patient denies
dysuria. Urine frequency is back to baseline.
Past History
Additional Past Medical History:
Atrial fibrillation
Diastolic heart failure
Hypertension
Heart block status post pacemaker placement
BPH
Aortic aneurysm
Dyslipidemia
Venous insufficiency
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
Chronic congestion/cough
CKD 3
Nephrolithiasis history of ureter stent
History of ESBL E. coli in urine
Allergy History:
No Known Allergies Allergy (Verified 02/20/25 10:19)
Medications Reviewed: Yes
Current Antibiotics:
Zosyn d4
Social History
Tobacco: Former Smoker
Alcohol: None
Drug: None
Personal:
Living: With Family
Review of Systems
Review of Systems
General: Chills and Change in Appetite; Negative Fever
HEENT: Negative Stiff Neck
Cardiovascular: Negative Chest Pain or Dyspnea
Respiratory: Negative Dyspnea
Gasteroenterology: Negative Nausea, Vomiting or Diarrhea
Genital / Urological: Hematuria; Negative Flank Pain
Endocrine: Weakness
Vital Signs
Temp Pulse Resp BP Pulse Ox
97.2 F 82 22 149/66 98
02/24/25 08:52 02/24/25 08:31 02/24/25 08:30 02/24/25 08:31 02/24/25 08:38
Physical Exam
Physical Exam
Constitutional: Comfortable and Obese
Head: Other (No sinus tenderness)
Eyes: No Conjunctival Hemorrhage and Sclera Anicteric
Cardiovascular: Regular Rate, S1/S2 and Other (Pacemaker site no erythema or induration)
Pulmonary: Clear and Non Labored
Gastrointestinal: Soft, Non Tender, Non Distended and Normal Bowel Sounds
Genito-Urinary: Negative Suprapubic Tenderness or CVA Tenderness
Extremities: Edema (Bilateral lower extremities) and Venous Insufficiency
Neurological: Awake
Psychological: Confused
Lab / Diagnostic Study Results
02/24/25 08:08
02/24/25 08:08
Abs Immat Gran (auto) 0.0 10^3/uL (0-0.05) 02/20/25 11:40
Absolute Neuts (auto) 9.3 10^3/uL (1.4-6.5) H 02/20/25 11:40
Absolute Lymphs (auto) 0.5 10^3/uL (1.2-3.4) L 02/20/25 11:40
Absolute Monos (auto) 1.0 10^3/uL (0.1-0.6) H 02/20/25 11:40
Absolute Basos (auto) 0.0 10^3/uL (0-0.2) 02/20/25 11:40
Immature Gran % 0.4 % (0-0.5) 02/20/25 11:40
Neutrophils % 85.8 % (42.2-75.2) H 02/20/25 11:40
Lymphocytes % 4.5 % (20.5-51.1) L 02/20/25 11:40
Monocytes % 9.0 % (1.7-9.3) 02/20/25 11:40
Eosinophils % 0.0 % (0-6) 02/20/25 11:40
Basophils % 0.3 % (0-2) 02/20/25 11:40
Ur Squamous Epith Cells 3-5 /LPF (Few) 02/20/25 12:15
Microbiology Results
Micro:
02/20/25 11:40 Blood Culture - Preliminary
Blood/Venous No Growth in 4 days- Final report to follow
02/20/25 11:40 Blood Culture - Preliminary
Blood/Venous No Growth in 4 days- Final report to follow
02/20/25 12:15 Urine Culture - Final
Urine Escherichia coli - ESBL
02/20/25 11:40 Influenza Types A & B ([place]) - Final
Nasal Swab Negative for Influenza A & B, NAAT
Negative results must be combined with clinical observations
and patient history.
Nucleic Acid Amplification test (NAAT)performed on the
[employer] platform.
02/20/25 CT a/p: Multiple bilateral nonobstructing intrarenal calculi. No ureteral calculus or hydronephrosis to suggest obstructive uropathy. Moderate to large amount of left perinephric soft tissue stranding, has progressed since prior
examination, extending inferiorly from the lower pole of the kidney along the inferior perinephric spac
Assessment / Plan
# ESBL-UTI
# Fever resolved
# Acute encephalopathy
-Blood cx's negative
- CT a/p: no hydronephrosis. Left perinephric stranding slightly progressed compared 10/2023
- Replace Zosyn (d4) with Ertapenem 1g IV q24h.
- At time of dc, transition to doxycycline 100mg po bid through 03/06/25.
- Follow mental status.
-Continue contact precaution
# Conditions prior to admission:
Atrial fibrillation
Diastolic heart failure
Hypertension
Heart block status post pacemaker placement
BPH
Abdominal aortic aneurysm
Dyslipidemia
Venous insufficiency
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
Chronic congestion/cough
CKD 3
Nephrolithiasis history of ureter stent
History of ESBL E. coli in urine
[2025-02-24] MEDS: INVANZ 60 MG IV (16:03)
--- NOTE | 2025-02-24 16:22 | CS.PSYCHR ---
Consult Summary - Psychiatry
-
pt seen this am in consultation for agitated/paranoid behavior last night requiring restraint.
89 yo man admitted 02/20 for hematuria, chills, fever, has known kidney stones, UTI diagnosed and is being treated with antibiotics. Per chart Past medical history of atrial fibrillation on Xarelto, diastolic heart failure, heart block status post
pacemaker, BPH, hypertension, hyperlipidemia, chronic lower extremity venous stasis, obesity, chronic congestion/cough, chronic kidney disease, chronic hypercalcemia, history of ESBL E. coli UTIs
No prior psychiatric history, lives with , supportive family nearby. Not noted to have dementia or prone to owning.
Last night (hospital day 3) was awakened for IV med change, became paranoid, demanding to have his clothes and leave, believing he was being poisoned. Ultimately attached staff with walker, had to be restrained physically. Given 10 mg IM zyprexa
with good effect.
Urine is clearing, afebrile today.
On my exam pt is sitting in chair in RN station. Heavy [place]ic accent makes comprehension difficult at times. Describes having a home in [place] that is so beautiful, hopes to get there soon with his . 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 Able to state age, knows that we just celebrated [place], tells me names of grandchildren and where they are in college (two at [employer].) Knows that the white went to [employer], but cannot
remember his name. Says he is in hospital but at times says in [place]. Upset about being tied down last night, cannot say what he was afraid of.
Impression: delirium most likely because of uti
Daughter concerned, points out potentially due to zosyn (1% chance by quick literature search) Wants to hold off on giving standard low dose antipsychotic for now.
[2025-02-24 16:51] VITALS: BP 167/76
[2025-02-24] MEDS: DESENEX/MITRAZOL/ZEASORB TOPICAL (21:00)
[2025-02-24] MEDS: ZYPREXA ZYDIS (ORALLY DISINTEGRATING) PO (22:16)
[2025-02-24 23:30] VITALS: BP 189/61
[2025-02-24 23:55] VITALS: BP 168/72
[2025-02-25 06:00] VITALS: BMI 38.5
[2025-02-25 07:00] VITALS: BP 158/95
--- NOTE | 2025-02-25 08:15 | W.PN.HOSP.TC ---
Today's Communication/Plan
-
await psych input
pt refused therapy
1:1 for patient safety
Assessment / Plan
Assessment / Plan
pt is an 89 year old male
acute paranoia vs delirium vs encephalopathy (from infection, waking up at night, or any combination thereof)--apprec psych input--hoping to minimize nighttime interruptions--1:1 added--pt with better night
Complicated urinary tract infection with left-sided pyelonephritis from ESBL E. coli--CT abdomen pelvis showing left-sided perinephric fat stranding and intraparenchymal multiple stones-- Patient has history of ESBL E. coli recurrent urinary tract
infection in the past and likely from renal stone acting as a nidus-- Zosyn changed to ertapenem--apprec ID, transition to oral meds at d/c through 03/06/25
Primary hyperparathyroidism and hypercalcemia (possibly related to confusion?)- -patient have diagnosis of primary hyperparathyroidism and related hypercalcemia-- daughter mentioned to previous provider that patient has seen endocrine ~ 1 year back
and at that point patient was considered to be started on possible bisphosphonate therapy. This was also postponed due to possibly improving calcium level? Patient also was discussed to have possible parathyroid surgery although deemed to be high
risk. Admission calcium of 11.5--current calcium pending
Thoracic aorta ruptured plaque -CT chest from August 21 showing patient having descending thoracic aorta plaque which was ruptured at that time-- No complicating findings and no actions were taken tat hat ER visit. Discussed with vascular surgeon
on-call who in light of no active symptoms recommended to follow-up in outpatient in office. Unable to get CT chest angio with contrast due to renal dysfunction. CT chest without contrast not helpful
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
History of nephrolithiasis -patient have undergone ureteral stent/cystoscopy by Dr. Cristina in the past-- CT abdomen pelvis showing again multiple small left kidneys parenchymal stones. This is acting likely as a nidus of recurrent ESBL E. coli
infection--Unfortunately uncontrolled hyperparathyroidism/hypercalcemia not helping
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
2021--nothing further to do
Hypokalemia - replete
Daughter update over the phone by Dr. Jamilah Rousseau 02/21,, and myself in person 02/24
might do better in familiar surroundings?
Anticipated Discharge: 24 - 48 hours
Subjective/Interval History
-
Date of Service: February 25, 2025
pt sleeping --did not wake
Objective Data
-
Labs:
Laboratory Results
02/25/25
06:00
WBC Pending
Hgb Pending
Hct Pending
Plt Count Pending
Sodium Pending
Potassium Pending
Chloride Pending
Carbon Dioxide Pending
BUN Pending
Creatinine Pending
Glucose Pending
Calcium Pending
Vital Signs:
max temp for 24 hours
02/24/25
23:30
Temp 98.8 F
Vital Signs
Temp Pulse Resp BP Pulse Ox
98.8 F 63 16 168/72 96
02/24/25 23:30 02/24/25 23:30 02/24/25 23:30 02/24/25 23:55 02/24/25 23:30
I&O
02/24/25 02/25/25 02/26/25
06:59 06:59 06:59
Intake Total 840 / 840 120 / 120
Balance 840 / 840 120 / 120
Review of Systems
-
Unable to obtain full review of systems at this time due to: Other (sleeping)
Physical Exam
-
General: Well Developed, Well Nourished, No Apparent Distress and Other (sleeping)
HEENT: Normocephalic and Atraumatic
Respiratory: Clear to Auscultation; Negative Wheezes or Rhonchi
Cardiac: Regular Rhythm and S1/S2; Negative Murmur
GI: Soft
Musculoskeletal: No Clubbing and No Cyanosis; Negative No Edema (2+ LE edema bilaterally)
[2025-02-25 08:46] LABS: Hematocrit 32.8 % (39.0-52.0); Hemoglobin 10.1 g/dL (13.0-18.0); Mean Corp Hgb Conc. 30.8 g/dL (33.0-37.0); Mean Corpuscular Volume 87.0 fL (80.0-94.0); Platelet Count 193 10^3/uL (130-400); Red Cell Dist. Width 15.4 % (11.5-14.5)
[2025-02-25 09:20] LABS: Blood Urea Nitrogen 18 mg/dl (9-20); Calcium 11.1 mg/dl (8.4-10.2); Carbon Dioxide 26 mmol/L (22-30); Chloride 105 mmol/L (98-107); Estimated Creatinine Clearance 42 ml/min; Glucose 100 mg/dl (70-99); Magnesium 2.6 mg/dl (1.6-2.3); Potassium 3.8 mmol/L (3.5-5.1); Sodium 137 mmol/L (135-145); eGFR 53.17
--- NOTE | 2025-02-25 10:37 | W.PN.ID1 ---
Date of Service
Date of Service: February 25, 2025
Today's Communication
See below.
Assessment / Plan
# ESBL-UTI
# Fever resolved
# Acute encephalopathy
-Blood cx's negative
- CT a/p: no hydronephrosis. Left perinephric stranding slightly progressed compared 10/2023
- s/p 4d Zosyn
- Continue Ertapenem 1g IV q24h (d2)
- At time of dc, transition to doxycycline 100mg po bid through 03/06/25.
- Follow mental status.
-Continue contact precaution
# Conditions prior to admission:
Atrial fibrillation
Diastolic heart failure
Hypertension
Heart block status post pacemaker placement
BPH
Abdominal aortic aneurysm
Dyslipidemia
Venous insufficiency
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
Chronic congestion/cough
CKD 3
Nephrolithiasis history of ureter stent
History of ESBL E. coli in urine
Chief Complaint
-: UTI
Subjective / Review of Systems
Pt remmains confused. On 1:1
Vital Signs / Physical Exam
Vital Signs
Vital Signs
Temp Pulse Resp BP Pulse Ox
97.6 F 64 16 158/95 94
02/25/25 07:00 02/25/25 07:00 02/25/25 07:00 02/25/25 07:00 02/25/25 07:00
Physical Exam
Constitutional: No Acute Distress
Cardiovascular: Regular Rate and S1/S2
Pulmonary: Clear
Gastrointestinal: Soft, Non Tender and Non Distended
Genito-Urinary: Negative Suprapubic Tenderness or CVA Tenderness
Extremities: Edema (chronic) and Venous Insufficiency
Psychological: Confused
Objective Data
Lab Data
Lab Results
02/25/25 08:16
02/25/25 08:16
Estimated Creat Clear 42 ml/min 02/25/25 08:16
Total Bilirubin 1.3 mg/dl (0.2-1.3) 02/20/25 11:40
AST 23 U/L (17-59) 02/20/25 11:40
ALT 19 U/L (0-50) 02/20/25 11:40
Alkaline Phosphatase 62 U/L (38-126) 02/20/25 11:40
Most recent labs reviewed.
Micro Results:
02/20/25 11:40 Blood Culture - Preliminary
Blood/Venous No Growth in 4 days- Final report to follow
02/20/25 11:40 Blood Culture - Preliminary
Blood/Venous No Growth in 4 days- Final report to follow
02/20/25 12:15 Urine Culture - Final
Urine Escherichia coli - ESBL
02/20/25 11:40 Influenza Types A & B ([place]) - Final
Nasal Swab Negative for Influenza A & B, NAAT
Negative results must be combined with clinical observations
and patient history.
Nucleic Acid Amplification test (NAAT)performed on the
[employer] platform.
02/20/25 CT a/p: Multiple bilateral nonobstructing intrarenal calculi. No ureteral calculus or hydronephrosis to suggest obstructive uropathy. Moderate to large amount of left perinephric soft tissue stranding, has progressed since prior
examination, extending inferiorly from the lower pole of the kidney along the inferior perinephric spac
[2025-02-25] MEDS: PROSCAR 5 MG PO (11:24)
[2025-02-25] MEDS: FLOMAX 0.4 MG PO (11:24)
[2025-02-25] MEDS: AVAPRO 300 MG PO (11:25)
[2025-02-25] MEDS: CRESTOR 20 MG PO (11:25)
[2025-02-25] MEDS: LASIX 40 MG PO (11:25)
--- NOTE | 2025-02-25 12:39 | W.PN.UPDATE ---
Update Note
Progress Note Update
pt seen for assessment. sitting in bedside chair, had been fed by PCTl (ate 80%.) A bit more sedated today, but no notes of overnight distress. Will continue current regimen of zydis hs
[2025-02-25 15:00] VITALS: BP 151/83
--- NOTE | 2025-02-25 15:22 | CM ---
Patient seen at bedside with physicians. Patient resting, on 1:1 and plan is pending physician and psych assessments/recommendation. CM will continue to follow for discharge planning needs.
Plan; SNF pending medical recommendations
[2025-02-25] MEDS: INVANZ 60 MG IV (16:22)
[2025-02-25] MEDS: DESENEX/MITRAZOL/ZEASORB 1 APPLIC TOPICAL ×2 (17:40→19:59)
[2025-02-25] MEDS: ZYPREXA ZYDIS (ORALLY DISINTEGRATING) 2.5 MG PO (19:58)
--- NOTE | 2025-02-25 19:58 | PTCARENOTE ---
Late entry, pt cooperative and calm throughout dayshift. No issues with behavior or agitation. Took all meds and cooperative with care.
[2025-02-25 23:00] VITALS: BP 149/73
[2025-02-26 05:21] VITALS: BMI 38.2
[2025-02-26 07:00] VITALS: BP 166/94
[2025-02-26 08:32] LABS: Hematocrit 33.0 % (39.0-52.0); Hemoglobin 10.3 g/dL (13.0-18.0); Mean Corp Hgb Conc. 31.2 g/dL (33.0-37.0); Mean Corpuscular Volume 88.5 fL (80.0-94.0); Platelet Count 221 10^3/uL (130-400); Red Cell Dist. Width 15.5 % (11.5-14.5)
[2025-02-26] MEDS: LASIX 40 MG PO (09:28)
[2025-02-26] MEDS: AVAPRO 300 MG PO (09:28)
[2025-02-26] MEDS: FLOMAX 0.4 MG PO (09:28)
[2025-02-26] MEDS: CRESTOR 20 MG PO (09:28)
[2025-02-26] MEDS: DESENEX/MITRAZOL/ZEASORB 1 APPLIC TOPICAL (09:30)
[2025-02-26] MEDS: PROSCAR 5 MG PO (09:30)
[2025-02-26 10:11] LABS: Blood Urea Nitrogen 19 mg/dl (9-20); Calcium 11.2 mg/dl (8.4-10.2); Carbon Dioxide 27 mmol/L (22-30); Chloride 105 mmol/L (98-107); Estimated Creatinine Clearance 36 ml/min; Glucose 110 mg/dl (70-99); Magnesium 2.5 mg/dl (1.6-2.3); Potassium 3.7 mmol/L (3.5-5.1); Sodium 138 mmol/L (135-145); eGFR 44.78
--- NOTE | 2025-02-26 12:42 | W.PN.ID1 ---
Date of Service
Date of Service: February 26, 2025
Today's Communication
- Continue Ertapenem 1g IV q24h (d3)
- At time of dc, transition to doxycycline 100mg po bid through 03/06/25.
Assessment / Plan
# ESBL-UTI
# Fever resolved
# Acute encephalopathy improving.
-Blood cx's negative
- CT a/p: no hydronephrosis. Left perinephric stranding slightly progressed compared 10/2023
- s/p 4d Zosyn
- Continue Ertapenem 1g IV q24h (d3)
- At time of dc, transition to doxycycline 100mg po bid through 03/06/25.
-Continue contact precaution
# Conditions prior to admission:
Atrial fibrillation
Diastolic heart failure
Hypertension
Heart block status post pacemaker placement
BPH
Abdominal aortic aneurysm
Dyslipidemia
Venous insufficiency
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
Chronic congestion/cough
CKD 3
Nephrolithiasis history of ureter stent
History of ESBL E. coli in urine
Chief Complaint
-: UTI
Subjective / Review of Systems
Feeling better. Aware he is in [facility].
Vital Signs / Physical Exam
Vital Signs
Vital Signs
Temp Pulse Resp BP Pulse Ox
97.8 F 70 16 166/94 93
02/26/25 07:00 02/26/25 07:00 02/26/25 07:00 02/26/25 07:00 02/26/25 07:00
Physical Exam
Constitutional: No Acute Distress
Cardiovascular: Regular Rate and S1/S2
Pulmonary: Clear
Gastrointestinal: Soft, Non Tender and Non Distended
Genito-Urinary: Negative Suprapubic Tenderness or CVA Tenderness
Extremities: Edema (chronic) and Venous Insufficiency
Neurological: Awake, Alert and Oriented (to place, person)
Objective Data
Lab Data
Lab Results
02/26/25 07:47
02/26/25 07:47
Estimated Creat Clear 36 ml/min 02/26/25 07:47
Total Bilirubin 1.3 mg/dl (0.2-1.3) 02/20/25 11:40
AST 23 U/L (17-59) 02/20/25 11:40
ALT 19 U/L (0-50) 02/20/25 11:40
Alkaline Phosphatase 62 U/L (38-126) 02/20/25 11:40
Most recent labs reviewed.
Micro Results:
02/20/25 11:40 Blood Culture - Final
Blood/Venous No Growth - Final Report
02/20/25 11:40 Blood Culture - Final
Blood/Venous No Growth - Final Report
02/20/25 12:15 Urine Culture - Final
Urine Escherichia coli - ESBL
02/20/25 11:40 Influenza Types A & B ([place]) - Final
Nasal Swab Negative for Influenza A & B, NAAT
Negative results must be combined with clinical observations
and patient history.
Nucleic Acid Amplification test (NAAT)performed on the
[employer] mobile platform.
02/20/25 CT a/p: Multiple bilateral nonobstructing intrarenal calculi. No ureteral calculus or hydronephrosis to suggest obstructive uropathy. Moderate to large amount of left perinephric soft tissue stranding, has progressed since prior
examination, extending inferiorly from the lower pole of the kidney along the inferior perinephric spac
--- NOTE | 2025-02-26 13:33 | W.PN.UPDATE ---
Update Note
Progress Note Update
patient seen chart reviewed. discussed with nursing and with dr rangel. patient is currently taking zydis 2.5 mg. nursing feels he is calmer and at this point not requiring prn's. he was pleasant though confused and not particularly engaged
when i saw him. psych will follow loosely.
--- NOTE | 2025-02-26 13:39 | VNURNOTE ---
Home Health Liaison spoke with patient 's daugher Arianne to discuss [facility] nurse/therapy, visits, schedule and homebound status. She is agreeable and understands that visits at home will be 2-3 x per week to assess and teach medical management.
Daughter is aware that [facility] will contact them for start of care within a week after discharge from .
[facility] referral completed in [facility].
--- NOTE | 2025-02-26 13:42 | W.PN.HOSP.TC ---
Today's Communication/Plan
-
d/c
Assessment / Plan
Assessment / Plan
pt is an 89 year old male
acute paranoia vs delirium vs encephalopathy (from infection, waking up at night, ing, apparent dementia likely more than family willing to admit or any combination thereof)--apprec psych input--hoping to minimize nighttime interruptions--1:1
taken off--better with HS Zyprexa
Complicated urinary tract infection with left-sided pyelonephritis from ESBL E. coli--CT abdomen pelvis showing left-sided perinephric fat stranding and intraparenchymal multiple stones-- Patient has history of ESBL E. coli recurrent urinary tract
infection in the past and likely from renal stone acting as a nidus-- Zosyn changed to ertapenem--apprec ID, transition to oral meds at d/c through 03/06/25--likely needs to follow up with ID [facility]
Primary hyperparathyroidism and hypercalcemia (possibly related to confusion?)- -patient have diagnosis of primary hyperparathyroidism and related hypercalcemia-- daughter mentioned to previous provider that patient has seen endocrine ~ 1 year back
and at that point patient was considered to be started on possible bisphosphonate therapy. This was also postponed due to possibly improving calcium level? Patient also was discussed to have possible parathyroid surgery although deemed to be high
risk. Admission calcium of 11.5--current calcium pending
Thoracic aorta ruptured plaque -CT chest from August 21 showing patient having descending thoracic aorta plaque which was ruptured at that time-- No complicating findings and no actions were taken tat hat ER visit. Discussed with vascular surgeon
on-call who in light of no active symptoms recommended to follow-up in outpatient in office. Unable to get CT chest angio with contrast due to renal dysfunction. CT chest without contrast not helpful
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
History of nephrolithiasis -patient have undergone ureteral stent/cystoscopy by Dr. Cristina in the past-- CT abdomen pelvis showing again multiple small left kidneys parenchymal stones. This is acting likely as a nidus of recurrent ESBL E. coli
infection--Unfortunately uncontrolled hyperparathyroidism/hypercalcemia not helping
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
2021--nothing further to do
Hypokalemia - replete
Daughter update over the phone by Dr. Jamilah Rousseau 02/21,, and myself in person 02/24
might do better in familiar surroundings?
OK for d/c from my standpoint but expecting family to disagree and want to keep until tomorrow....
Anticipated Discharge: Today
Subjective/Interval History
-
Date of Service: February 26, 2025
pt more interested in blowing his nose than in talking with me about d/c
Objective Data
-
Labs:
Laboratory Results
02/26/25
07:47
WBC 6.0
Hgb 10.3 L
Hct 33.0 L
Plt Count 221
Sodium 138
Potassium 3.7
Chloride 105
Carbon Dioxide 27
BUN 19
Creatinine 1.5 H
Glucose 110 H
Calcium 11.2 H
Vital Signs:
max temp for 24 hours
02/25/25
15:00
Temp 98.2 F
Vital Signs
Temp Pulse Resp BP Pulse Ox
97.8 F 70 16 166/94 93
02/26/25 07:00 02/26/25 07:00 02/26/25 07:00 02/26/25 07:00 02/26/25 07:00
I&O
02/25/25 02/26/25 02/27/25
06:59 06:59 06:59
Intake Total 120 / 120 480 / 480
Balance 120 / 120 480 / 480
Review of Systems
-
Unable to obtain full review of systems at this time due to: Dementia
Physical Exam
-
General: Well Developed, Well Nourished and No Apparent Distress
HEENT: Normocephalic and Atraumatic; Negative Oxygen
Respiratory: Clear to Auscultation; Negative Wheezes or Rhonchi
Cardiac: Regular Rhythm and S1/S2; Negative Murmur
GI: Soft, Nontender, Nondistended and Normal Bowel Sounds
Musculoskeletal: No Clubbing and No Cyanosis; Negative No Edema (1+ LE edema bilaterally)
Neuro: Awake
--- NOTE | 2025-02-26 14:09 | CM ---
Patient seen at bedside and spoke with patient daughter Arianne. [facility] reviewed with patient daughter and no questions at this time. Patient family requested referral to [facility] and referral sent to [facility] liaison and family requesting nurse wear a mask when
visiting. Liaison aware. Patient for discharge home today. CM will continue to follow for discharge planning needs.
Plan; home with [facility] and family supports.
[2025-02-26 15:34] VITALS: BP 133/62
--- NOTE | 2025-02-26 15:52 | W.DCSUMMARY ---
Discharge Summary
Discharge Data
Date of Admission: 02/20/25
Date of Discharge: 02/26/25
-
Pending Results: No
Hospital Course
Primary care physician : Miguel Baker
Principal Discharge diagnosis : Complicated urinary tract infection with left-sided pyelonephritis from extended-spectrum beta-lactamase Escherichia coli, acute hospital-acquired delirium versus metabolic encephalopathy from infection in addition to
likely apparent dementia
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
Hospital Course : Patient was an 89-year-old male with a history of paroxysmal atrial fibrillation on Xarelto among other medical issues who presented with weakness and gross hematuria. Patient's daughter stated that at the family dinner on
A[address] her father seemed weaker than baseline. His noticed that his urine was pink and dark brown. He was also having urinary frequency. He was noted to have chills but denied fever. He has chronic congestion. On the day of
admission was sneezing more than usual and congested more than usual. CAT scan done in the emergency department was concerning for pyelonephritis and the patient was admitted.
Problem #1: Complicated urinary tract infection with left-sided pyelonephritis from extended-spectrum beta-lactamase Escherichia coli. Patient was started on IV Zosyn and urine culture was obtained which showed the extended spectrum beta-lactamase
Escherichia coli. Despite being sensitive to the Zosyn, patient was being woken up in the middle of the night to get the every 6 hour Zosyn administration. This led to disruption in sleep and issues with hospital-acquired delirium that will be
discussed in the next problem. Because of that, once daily ertapenem was prescribed at the request of the ID consultation. ID has determined that the patient can go on oral antibiotics through March 06, 2025. It may be reasonable for the patient
to follow-up with infectious disease as an outpatient due to the fact that without definitive treatment of his calcium, he will be prone to kidney stones which are thought to be the nidus of infection here, and would likely need chronic suppressive
therapy.
Problem #2: Acute hospital-acquired delirium versus metabolic encephalopathy from infection in addition to likely apparent dementia. Overnight on the insulation technician of 02/24/2025, patient became agitated and made verbal threats. He was attempting
to exit his room and was paranoid saying that the medications were poisoned. Psychiatry was consulted, IM Zyprexa was given and restraints were ordered and placed. The following morning, patient was very upset of what happened overnight. I did
speak to the patient's daughter and stated that psychiatry would be seeing the patient and that we would be minimizing him being woken up in the middle of the night. Psychiatry recommended starting oral Zyprexa at 2.5 mg at bedtime which he did
take and had better nights throughout the rest of his hospitalization. It has been discovered that the patient has a very strict regimen at home without deviation (and by my ascertainment this likely indicates some evidence of cognitive
dysfunction/dementia although the daughters deny that). I do believe that the patient would benefit from being in his home environment rather than continuing to stay in the hospital here. We will continue his at bedtime Zyprexa. Therapy has seen
the patient and recommend [facility] facility. However, I did speak with the patient's daughter who also indicates that that likely would not be beneficial to him and he wishes to go home. Visiting nurses along with physical therapy and
Occupational Therapy have been set up for discharge. Patient will receive his IV ertapenem at 4 PM today followed by his discharge thereafter.
Problem #3: All other medical issues. 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 These
medications were stable during his hospitalization and medications were continued as able. In regards to the primary hyperparathyroidism and hypercalcemia, patient had been seen by endocrine in the past approximately a year ago and was considered
to be started on bisphosphonate therapy. However, he had an improving calcium level and this was deferred. In addition, parathyroid surgery was discussed but the patient was too high risk. 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
patient was seen in consultation by neurosurgery who stated that these are chronic changes that date back to 2021 and nothing further to do from that standpoint. In regards to the thoracic aorta ruptured plaque, this was discussed with the vascular
surgeon on-call who stated that he could follow-up in the outpatient office. A CAT scan done without contrast was not helpful.
Patient is stable for discharge home at this time. If there are any questions regarding this dictation or his hospital stay, please do not hesitate to call. Our office number is [phone].
Time for discharge 40 minutes.
Important imaging findings :
CT SCAN ABDOMEN/PELVIS IMPRESSION:
Multiple bilateral nonobstructing intrarenal calculi. No ureteral calculus or hydronephrosis to suggest obstructive uropathy. No bladder calculus.
Moderate to large amount of left perinephric soft tissue stranding, has progressed since prior examination, extending inferiorly from the lower pole of the kidney along the inferior perinephric space. This raises possibility of superimposed
infection/pyelonephritis. Also associated mild left para-aortic adenopathy at the renal level. Clinical correlation recommended.
Stable mild wall thickening of the urinary bladder, and stable subtle soft tissue stranding at the peripheral margin. Likely chronic in nature, though cannot exclude mild inflammatory changes/cystitis in the proper clinical setting.
Discharge Plan
-
Patient Disposition: Home with Home Care
Discharge Diagnosis/Procedures: Complicated urinary tract infection with left-sided pyelonephritis from ESBL Escherichia coli, acute hospital delirium versus encephalopathy versus cognitive impairment at baseline, primary hyperparathyroidism with
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
Condition: Good
Diet: As tolerated
Activity: As tolerated
Driving Restrictions: No driving
Bathing Restrictions: None
Other Services: VN, PT and OT
Referrals:
Miguel Baker MD [Family Provider, Internal Medicine] - in less than 1 week
Arianne Laurent MD [Active, Infectious Diseases] - in two to three weeks
Prescriptions:
New
acetaminophen 325 mg Tablet
650 mg PO Q4HPRN PRN (Reason: mild pain/LILLY/temp> 100.4F) Qty: 0 0RF
olanzapine 5 mg Tablet,Disintegrating
2.5 mg PO HS Qty: 20 0RF
doxycycline monohydrate 100 mg tablet
100 mg PO BID 9 Days Qty: 18 0RF
Continued
rosuvastatin 20 MG tablet
20 mg PO DAILY
dutasteride 0.5 MG capsule
0.5 mg PO DAILY
tamsulosin 0.4 MG capsule
0.4 mg PO DAILY 30 Days Qty: 30 0RF
polyethylene glycol 3350 17 GRAMS powder in packet
17 grams PO DAILYPRN PRN (Reason: Constiaption)
furosemide 40 mg Tablet
40 mg PO DAILY
methenamine hippurate 1 gram Tablet
1 g PO BID
irbesartan 300 mg tablet
300 mg PO DAILY
cholecalciferol (vitamin D3) 25 mcg (1,000 unit) Tablet
25 mcg PO DAILY
Xarelto 20 mg Tablet
20 mg PO HS
Discontinued
acetaminophen [Tylenol Extra Strength] 500 mg Tablet
1,000 mg PO BIDPRN PRN (Reason: mild pain)
nitrofurantoin monohyd/m-cryst 100 mg capsule
100 mg PO HS
Discharge Orders:
Discharge Patient (As Directed); Ordered 02/26/25
Ordered By: Emma Fontaine
Discharge Date and Time
Print Language: PASHTO
[2025-02-26] MEDS: INVANZ 60 MG IV (16:11)
== END 2025-02-26 18:16 | disposition home health service (06) | DRG 690 ==
LOC: 4 WEST ACU 15:32
PROVIDERS: Hospitalist; Physician Assistant; Registered Nurse; ADMITTING PHYSICIAN Hospitalist; ATTENDING PHYSICIAN Internal Medicine; CONSULT PHYSICIAN Internal Medicine Infectious Disease; CONSULT PHYSICIAN Psychiatry & Neurology Psychiatry; EMERGENCY PHYSICIAN Emergency Medicine; FAMILY PHYSICIAN Internal Medicine; OTHER PHYSICIAN Neurological Surgery
DX: N13.6 Pyonephrosis (principal); F03.911 Unspecified dementia, unspecified severity, with agitation; F05 Delirium due to known physiological condition; I13.0 Hypertensive heart and chronic kidney disease with heart failure and stage 1 through stage 4 chronic kidney disease, or unspecified chronic kidney disease; I50.32 Chronic diastolic (congestive) heart failure; Z16.12 Extended spectrum beta lactamase (ESBL) resistance; B96.20 Unspecified Escherichia coli [E. coli] as the cause of diseases classified elsewhere; E83.52 Hypercalcemia; Z87.442 Personal history of urinary calculi; N18.32 Chronic kidney disease, stage 3b; E11.22 Type 2 diabetes mellitus with diabetic chronic kidney disease; D63.1 Anemia in chronic kidney disease; R31.0 Gross hematuria; I48.0 Paroxysmal atrial fibrillation; E78.00 Pure hypercholesterolemia, unspecified; E66.09 Other obesity due to excess calories; Z68.38 Body mass index [BMI] 38.0-38.9, adult; Z95.0 Presence of cardiac pacemaker; Z87.440 Personal history of urinary (tract) infections; E87.6 Hypokalemia; I87.2 Venous insufficiency (chronic) (peripheral); N40.1 Benign prostatic hyperplasia with lower urinary tract symptoms; Z79.01 Long term (current) use of anticoagulants; Z87.891 Personal history of nicotine dependence; Z11.52 Encounter for screening for COVID-19
CPT/HCPCS: 71046; 71250; 74176; 80048; 80053; 81003; 81015; 83735; 85025; 85027; 87040; 87077; 87086; 87186; 87502; 87811; 93288; 96374; 97110; 97116; 97162; 97166; 99285; J1335; J2358